=== PATIENT | female | born 1940 | race Caucasian/White ===

== ENCOUNTER 2018-05-17 12:44 | Inpatient (IN) | payer OTHER ==
[2018-05-17] MEDS ORDERED: ROPIVACAINE 0.2% 80 MG, EPINEPHrine 0.2 MG, morphINE 10 MG in SYRINGE 0 ML IU ONE (12:46)
[2018-05-17] MEDS ORDERED: ceFAZolin 2 GM/DEXTROSE 100 ML IV ONE (12:46)
[2018-05-17] MEDS ORDERED: TRANEXAMIC ACID 3,000 MG in NS (SYRINGE) 50 ML IRR ONE (12:46)
[2018-05-17] MEDS ORDERED: LR 1,000 ML IV ONE (12:47)
--- NOTE | 2018-05-17 13:04 | PDGENHP ---
History & Physical Chief Complaint: Left hip unstable bipolar hemiarthroplasty, acetabular fracture History of Present Illness: Payal is here for repeat evaluation of her left hip s /p left hip bipolar hemiarthroplasty with subsequent fall and dislocation in [place] 4 months ago. She also has nondisplaced acetabular fracture. Since her last visit she fell and dislocated her hip on 04/26/18. Hip was reduced at [facility] and CT scan was ordered which showed reduction of dislocation as well as minimally displaced acetabular fracture. She was put in [facility] facility where she dislocated again when turning over in bed on 05/13/18. She now has an unstable bipolar hemiarthroplasty with acetabular fracture. We discussed options including surgical intervention with revision to total hip arthroplasty. Pertinent Past, Social, Family History: PMH: Anxiety, arthritis, depression, HTN , osteoporosis. FH: non-contributory. SH: non smoker Relevant Physical Exam: Payal is unable to ambulate. She is currently in a wheelchair with a brace locked with hip at 90 degrees of flexion. Unable to test ROM due to brace and pain. She is NV intact LLE. Calf is soft to compression without pain. Cardiorespiratory Assessment: RRR, CTAB
[2018-05-17] MEDS ORDERED: POLYMYXIN B SULFATE 500,000 UNIT/10 ML SYR IRR ONE (13:08)
[2018-05-17] MEDS ORDERED: BACITRACIN 50,000 UNITS/10 ML SYR IRR ONE (13:08)
[2018-05-17] MEDS ORDERED: CALCIUM CHLORIDE 1 GM/10 ML INJ ONE (13:08)
[2018-05-17] MEDS ORDERED: THROMBIN (BOVINE) 5,000 UNIT VIAL TP ONE (13:08)
[2018-05-17] MEDS ORDERED: BUPIVACAINE/EPI 0.5% 30 ML SDV ONE (13:08)
--- NOTE | 2018-05-17 13:50 | PDANEPAE ---
ANE Past Medical History - Cardiovascular History Hx Hypertension: No Hx Arrhythmias: No Hx Chest Pain: No Hx Coronary Artery / Peripheral Vascular Disease: No Hx CHF / Valvular Disease: No Hx Palpitations: No - Pulmonary History Hx COPD: No Hx Asthma/Reactive Airway Disease: No Hx Recent Upper Respiratory Infection: No Hx Oxygen in Use at Home: No Hx Sleep Apnea: No Sleep Apnea Screening Result - Last Documented: Negative - Neurologic History Hx Cerebrovascular Accident: No Hx Seizures: No Hx Dementia: No Neurologic History Comment: parkinsons - Endocrine History Hx Diabetes: No - Renal History Hx Renal Disorders: Yes Renal History Comment: cystitis without hematuria - Liver History Hx Hepatic Disorders: No - Neurological & Psychiatric Hx Hx Neurological and Psychiatric Disorders: Yes Neurological / Psychiatric History Comment: depression. anxiety - Cancer History Hx Cancer: No - Congenital Disorder History Hx Congenital Disorders: No - GI History Hx Gastrointestinal Disorders: Yes Gastrointestinal History Comment: constipation - Other Health History Other Health History: hx of anemia. chronic pain. fibromyalgia - Surgical History Prior Surgeries: 03/02/11 left cataract surgery with Edgar. 02/02/11 right cataract surgery with Edgar. 08/19/09 L1 kyphoplasty with VVC. hysterectomy. tonsillectomy. r total knee ANE Review of Systems Review of Systems: - Exercise capacity METS (RN): 2 METS ANE Patient History - Allergies Allergies/Adverse Reactions: tramadol Allergy (Verified 05/17/18 13:00) - Home Medications Home Medications: ACETAMINOPHEN 05/16/18 [Last Taken 05/17/18 03:00] Amantadine 05/16/18 [Last Taken 3 Weeks Ago ~04/26/18] Carbidopa/Levodopa 05/16/18 [Last Taken 05/17/18] Flonase Nasal [place] BID 05/16/18 [Last Taken 05/17/18] Gabapentin 05/16/18 [Last Taken 05/17/18] Herbals/Supplements -Info Only 05/16/18 [Last Taken 05/17/18] Lovenox 05/16/18 [Last Taken 05/16/18] Mirabegron HS 05/16/18 [Last Taken 05/16/18] Requip 05/16/18 [Last Taken 05/17/18] Wellbutrin Xl 05/16/18 [Last Taken 05/17/18] oxyCODONE IR 05/16/18 [Last Taken 05/17/18 09:30] - NPO status NPO Since - Liquids (Date): 05/17/18 NPO Since - Liquids (Time): 09:45 NPO Since - Solids (Date): 05/16/18 NPO Since - Solids (Time): 20:00 - Smoking Hx Smoking Status: Never smoked - Family Anes Hx Family Hx Anesthesia Complications: no ANE Labs/Vital Signs - Vital Signs Blood Pressure: 162/77 Heart Rate: 69 Respiratory Rate: 14 O2 Sat (%): 92 Height: 165.1 cm Weight: 63.503 kg ANE Physical Exam - Airway Mallampati Score: Class 2 - ASA Status ASA Status: II ANE Anesthesia Plan Anesthesia Plan: general endotracheal anesthesia, GA w LMA, spinal
[2018-05-17] MEDS ORDERED: PROPOFOL 200 MG/20 ML VIAL ONE (13:57)
[2018-05-17] MEDS ORDERED: fentaNYL 100 MCG/2 ML INJ ONE ×3 (13:57→17:29)
[2018-05-17] MEDS ORDERED: MIDAZOLAM 2 MG/2 ML VIAL ONE (13:57)
[2018-05-17] MEDS ORDERED: ONDANSETRON 4 MG/2 ML VIAL ONE (13:58)
[2018-05-17] MEDS ORDERED: METOCLOPRAMIDE 10 MG/2 ML VIAL ONE (13:58)
--- NOTE | 2018-05-17 14:18 | PDHPUP ---
History & Physical Update H&P update statement: This history and physical update is based on an assessment of the patient which was completed after admission or registration (within 24 hours), but prior to the surgery/procedure. H&P update: H&P reviewed & patient examined, no change in patient's condition since H&P completed
[2018-05-17] MEDS ORDERED: TRANEXAMIC ACID 3,000 MG/50 ML BAG IRR ONE (14:25)
[2018-05-17] MEDS ORDERED: diphenhydrAMINE 25 MG CAP PO PRN (17:07)
[2018-05-17] MEDS ORDERED: ONDANSETRON 4 MG/2 ML VIAL IVP PRN ×2 (17:07→17:18)
[2018-05-17] MEDS ORDERED: MAGNESIUM HYDROXIDE 30 ML UDCUP PO PRN (17:07)
[2018-05-17] MEDS ORDERED: METOCLOPRAMIDE 10 MG/2 ML VIAL IVP PRN (17:07)
[2018-05-17] MEDS ORDERED: DIPHENOXYLATE/ATROPINE LOMOTIL 1 TAB PO PRN (17:07)
[2018-05-17] MEDS ORDERED: POLYETHYLENE GLYCOL 3350 17 GM PKT PO PRN (17:07)
[2018-05-17] MEDS ORDERED: TAPENTADOL HCL 50 MG TAB PO PRN (17:07)
[2018-05-17] MEDS ORDERED: LACTULOSE 20 GM/30 ML UDCUP PO PRN (17:07)
[2018-05-17] MEDS ORDERED: PROMETHAZINE HCL 25 MG/ML INJ IVP PRN (17:07)
[2018-05-17] MEDS ORDERED: BISACODYL 10 MG SUPP PR PRN (17:07)
[2018-05-17] MEDS ORDERED: ONDANSETRON DISINTEGRATING 4 MG TAB PO PRN (17:07)
[2018-05-17] MEDS ORDERED: TEMAZEPAM 15 MG CAP PO PRN (17:07)
[2018-05-17] MEDS ORDERED: PROMETHAZINE HCL 25 MG SUPPR PR PRN (17:07)
--- NOTE | 2018-05-17 17:07 | POSTOPPROG ---
Post Op Note Date of Operation: 05/17/18 Surgeon: Colleen Dumont Hydrometallurgical Engineer: coltrain Anesthesia: GET(General Endotracheal) Pre-op Diagnosis: l acetab fx with naren-arthroplasty instability Procedure: l naren-arthroplasty conversion to total with orif acetabulum w/ fluoro Inf/Abcess present in the surg proc area at time of surgery?: No Depth: Deep Incisional (Fascial) EBL: 500-1000
[2018-05-17] MEDS ORDERED: NALOXONE HCL 0.4 MG/ML INJ IVP PRN (17:18)
[2018-05-17] MEDS ORDERED: LR 500 ML IV PRN (17:18)
[2018-05-17] MEDS ORDERED: oxyCODONE IR 5 MG TAB PO PRN (17:18)
--- NOTE | 2018-05-17 17:19 | POSTANESTH ---
Post Anesthetic Evaluation Cardiovascular Status: Normal, Stable Respiratory Status: Normal, Stable Level of Consciousness/Mental Status: Can Participate in Eval Pain Control: Adequate, Prn Tx Ordered Nausea/Vomiting Control: Adequate, Prn Tx Ordered Complications Possibly Related to Anesthesia: None Noted
[2018-05-17] MEDS: fentaNYL 100 MCG/2 ML INJ IVP PRN ×3 (17:39→18:13)
[2018-05-17] MEDS ORDERED: KETOROLAC 15 MG/1 ML SDV ONE (17:43)
[2018-05-17] MEDS: KETOROLAC 15 MG/1 ML SDV IVP SCH (17:46)
[2018-05-17] MEDS ORDERED: HYDROmorphONE/DILAUDID 2 MG/ML INJ ONE (18:30)
[2018-05-17] MEDS: HYDROmorphONE/DILAUDID 2 MG/ML INJ IVP PRN ×2 (18:32→18:45)
[2018-05-17] MEDS ORDERED: HYDROmorphONE/DILAUDID 1 MG/ML INJ IVP PRN (18:42)
--- NOTE | 2018-05-17 19:24 | GOP ---
[f rep st] OPERATIVE REPORT DATE OF OPERATION: 05/17/2018 SURGEON: Colleen Dumont MD COMMERCIAL LINES MANAGER: Steve Miller, Certified SA, whose presence was medically necessary. ANESTHESIA: By endotracheal intubation. PREOPERATIVE DIAGNOSIS: Right hip hemiarthroplasty instability with acetabular fracture. POSTOPERATIVE DIAGNOSIS: Right hip hemiarthroplasty instability with acetabular fracture with left h ip dislocation. PROCEDURE PERFORMED: Left hip hemiarthroplasty conversion to a total hip arthroplasty with open redu ction internal fixation of the acetabulum and reduction of the dislocated left hemiarthroplasty with fluoroscopy. FINDINGS: INDICATIONS: This is a 77-year-old female who had previously undergone a left hip hemiarthroplasty. Had been doing well until she had a fall in [place], where she was then diagnosed with an acetab ular fracture. As time went on, she began to have episodes of instability associated with her hip. Has had 3 episodes of dislocation that have been able to be put back in. She had been placed in a hi p abduction brace, but would like definitive fixation in order to resolve her problem. DESCRIPTION OF PROCEDURE: Patient was brought to the operating room after the left side had been mitali ntified as the correct side by the patient, nurse, and physician. Once in the operating room, she wa s placed under general anesthesia using endotracheal intubation. Once asleep, she was placed on a tr action table with a well-padded perineal post. Fluoroscopy was used to ensure proper positioning of the pelvis and in so doing, found the hemiarthroplasty to be in a dislocated position. Am attempt at dislocation was attempted but unable to relocate the hip, suggesting it had been out for some time. She had both legs placed in appropriate leg holders. The left hip and flank were then sterilely pre pped and draped in the usual fashion using GSI solution. Once prepped and draped, incision was made starting 2 cm lateral and inferior to the ASIS and heading in a 15-degree posterior direction with sh desi dissection carried down through the skin and subcutaneous layers and bleeding controlled using el ectrocautery. Dissection was done down onto the fascia of the TFL with the fascia cut in line with i ts fibers. The muscle belly of the TFL retracted laterally. Blunt dissection was carried down to th e deep portion of the fascial sheath, where the circumflex vessels were found and were cauterized. D eeper dissection was carried down onto the hip. Very difficult to discern anatomy secondary to the a bundant amount of scar tissue in the area. Scar tissue was subsequently removed bit-by-bit until mitali ntifying the acetabulum, which was filled with pulvinar and scar tissue, suggesting that the hemiarth roplasty had not been in the hip for some time. Further dissection carried superiorly found abundant amount of scar tissue around the femoral component, suggesting it had been dislocated for some time. Once the scar tissue had been adequately removed, the hip was able to be brought out of dislocation . The head was then removed in order to gain better access into the acetabulum. An abundant amount of scar tissue within the acetabulum as well as pulvinar had to be removed in order to define the dewayne tabulum. There was abundant amount of wear of the bone associated with fractures on the posterior wa ll of the acetabulum. She was noted to have good stability through the acetabulum due to secondary i nterval healing of the acetabulum since original fall. Sequential reamers were used up to a size 54, which was noted to get good peripheral fit and good bleeding bone. A 54 trial was noted to fit secu rely and was checked under fluoroscopy to note proper position. Once in proper position, a 54 mm Tri dent Tritanium shell from [place] was put into place. There were a total of 5 screws placed within t he cup, 2 superiorly, 1 posteriorly, 1 anteroinferior, and 1 posteroinferior into the cup in order to gain good fixation. All screws had excellent fixation. Trial reduction was performed. Secondary t o the dislocation, it was very difficult to tell what tissue tension was in the area secondary to the chronicity of her dislocation. Trials were performed, noted to have adequate length returned to the pelvis. Therefore, an MDM cementless 42 mm liner was placed into the acetabular shell from [place], at which point the original 28 mm head was placed back onto the trunnion as well as a Jewish MD M polyethylene insert that was a 28 x 48 mm polyethylene liner was then put into place. The hip was then reduced. The length was checked and noted to be within 1 cm of the opposite side. The wound wa s thoroughly irrigated with an antibiotic solution. Joint cocktail was injected in the posterior cap pool as well as the musculature around the hip. Tranexamic acid was irrigated through the wound. Th e wound was then closed in layers to include a barbed 0 Prolene suture in a running whipstitch for th e fascial layer overlying the TFL. Plasma gel was injected into the sheath. 0 Vicryl and 2-0 Vicryl suture used for the subcutaneous layers and a 3-0 V-Loc suture in running subcuticular stitch was us ed for the skin. 30 cc of Marcaine was infused around the actual incision site itself. The wound wa s then dressed with Steri-Strips, Xeroform, 4 x 4, and Tegaderm. The patient was completely undraped in the operating room, had both legs taken out of their leg mo, perineal post was removed, leg l engths were noted to be nearly equal. She was then woken up, extubated, transferred onto a bed, and sent to recovery room in good condition. /[id number]/MODL
[2018-05-17] MEDS: ACETAMINOPHEN 325 MG TAB PO SCH (20:03)
[2018-05-17] MEDS: LR 1,000 ML IV SCH (20:13)
[2018-05-17] MEDS: FAMOTIDINE 20 MG TAB PO SCH (20:13)
[2018-05-17] MEDS: SENNOSIDES/DOCUSATE SODIUM TAB PO SCH (20:13)
[2018-05-17] MEDS: oxyCODONE IR 5 MG TAB PO PRN (20:14)
[2018-05-17] MEDS: ceFAZolin 2 GM/DEXTROSE 100 ML IV SCH (22:33)
[2018-05-18] MEDS: KETOROLAC 15 MG/1 ML SDV IVP SCH ×3 (00:11→11:53)
[2018-05-18] MEDS: ACETAMINOPHEN 325 MG TAB PO SCH ×4 (00:11→18:31)
[2018-05-18] MEDS: oxyCODONE IR 5 MG TAB PO PRN ×4 (00:11→21:17)
[2018-05-18] MEDS: LR 1,000 ML IV SCH ×2 (05:06→10:34)
[2018-05-18] MEDS: ceFAZolin 2 GM/DEXTROSE 100 ML IV SCH (06:28)
--- NOTE | 2018-05-18 07:22 | PDMN ---
Medical Necessity Medical necessity: [facility] S560 hip arthroplasty INPT only : OP: L hip hemiarthroplasty conversion to MARITZA with ORIF of acetabulum and reduction of dislocated L hemiarthroplasty with fluoroscopy-- AUTH# [id number] APPROVED FOR CPT CODES 01101, 13195, AND 67149 TO BE DONE INPATIENT. 1 DAY LOS.
[2018-05-18 08:48] LABS: PLATELET COUNT 264 10^3/uL (150-400)
[2018-05-18] MEDS: RIVAROXABAN 10 MG TAB PO SCH (08:50)
[2018-05-18] MEDS: FAMOTIDINE 20 MG TAB PO SCH ×2 (08:50→20:04)
[2018-05-18] MEDS: SENNOSIDES/DOCUSATE SODIUM TAB PO SCH ×2 (08:51→19:35)
--- NOTE | 2018-05-18 09:23 | PDHOSCONS ---
History and Physical - Chief Complaint decreased uop - History of Present Illness 77 yo female with h/o prior MARITZA presented for revision of MARITZA after repeated dislocation. She is s/p revision and ORIF, pod #1. RN reported decreased uop overnight. A gates is in place. She notes a h/o UTI in 12/2017 as well as urinary incontinence. She reports 3 UTI's in the past year. She started Myrbetriq for urinary incontinence, which she thinks was helpful. No fevers/ chills. No N/V. No abdominal pain or flank pain. She is eating and drinking. Pain is controlled. History Information - Allergies/Home Medication List Allergies/Adverse Reactions: tramadol Allergy (Verified 05/17/18 13:00) Home Medications: Acetaminophen [Tylenol ES 500 mg (*)] 500 mg PO Q6 PRN 05/16/18 [Last Taken 03:00] Amantadine HCl [Amantadine] 100 mg PO DAILY PRN 05/16/18 [Last Taken 3 Weeks Ago ~04/26/18] Carbidopa/Levodopa [Carbidopa-Levodopa 25-100 Tab] 1.5 each PO TID 05/16/18 [ Last Taken 05/17/18] Enoxaparin [Lovenox 40 MG (*)] 40 mg SQ DAILY 05/16/18 [Last Taken 05/16/18] Fluticasone Nasal [Flonase Nasal [place] (RX)] 1 sprays NASAL BID 05/16/18 [Last Taken 05/17/18] Gabapentin [Neurontin 300 MG (*)] 300 mg PO DAILY@08 05/16/18 [Last Taken ] Herbals/Supplements -Info Only 1 ea PO DAILY 05/16/18 [Last Taken 05/17/18] Mirabegron [Myrbetriq] 25 mg PO HS 05/16/18 [Last Taken 05/16/18] buPROPion XL [Wellbutrin Xl] 300 mg PO DAILY 05/16/18 [Last Taken 05/17/18] oxyCODONE IR [Oxycodone Ir (*)] 5 - 10 mg PO Q6H PRN 05/16/18 [Last Taken 12:30 10mg] rOPINIRole HCL [Ropinirole HCl] 0.5 mg PO TID 05/16/18 [Last Taken 05/17/18] Cholecalciferol Vit D3 [Vitamin D3 (*)] 5,000 units PO DAILY 05/17/18 [Last Taken 05/17/18] Gabapentin [Neurontin 300 MG (*)] 600 mg PO HS 05/17/18 [Last Taken 05/16/18] Sennosides/Docusate Sodium [Senokot-S (OTC)] 1 each PO DAILY PRN 05/17/18 [Last Taken Unknown] Vitamin B Complex [Vitamin B Complex (OTC)] 1 each PO DAILY 05/17/18 [Last Taken 05/17/18] I have personally reviewed and updated: family history, medical history, social history, surgical history - Past Medical History Additional medical history: Parkinsons. Recurrent UTI. Neuropathy - Surgical History Additional surgical history: MARITZA, with revision and ORIF of acetabular fracture 04/2018 - Family History Positive for: non-pertinent - Social History Smoking Status: Never smoked Alcohol Use: None Drug Use: None Review of Systems Review of Systems: ROS: 10pt was reviewed & negative except for what was stated in HPI & below Physical Exam Physical Exam: Temp Pulse Resp BP Pulse Ox 36.7 C 72 16 109/51 L 97 05/18/18 07:51 05/18/18 08:09 05/18/18 08:09 05/18/18 08:09 05/18/18 08:09 O2 (L/minute) 2 Constitutional: no apparent distress Eyes: PERRL Ears, Nose, Mouth, Throat: moist mucous membranes Cardiovascular: regular rate and rhythym Respiratory: no respiratory distress, clear to auscultation Gastrointestinal: normoactive bowel sounds, soft, non-tender abdomen Skin: warm Musculoskeletal: full muscle strength Neurologic: AAOx3 Psychiatric: interacting appropriately, poor memory Lab Data & Imaging Review 05/18/18 08:40 05/18/18 08:40 WBC 10.05 10^3/uL (3.80-9.50) H 05/18/18 08:40 RBC 3.06 10^6/uL (4.18-5.33) L 05/18/18 08:40 Hgb 8.5 g/dL (12.6-16.3) L 05/18/18 08:40 Hct 26.7 % (38.0-47.0) L 05/18/18 08:40 MCV 87.3 fL (81.5-99.8) 05/18/18 08:40 MCH 27.8 pg (27.9-34.1) L 05/18/18 08:40 MCHC 31.8 g/dL (32.4-36.7) L 05/18/18 08:40 RDW 14.6 % (11.5-15.2) 05/18/18 08:40 Plt Count 264 10^3/uL (150-400) 05/18/18 08:40 MPV 7.8 fL (8.7-11.7) L 05/18/18 08:40 Neut % (Auto) 77.9 % (39.3-74.2) H 05/18/18 08:40 Lymph % (Auto) 14.8 % (15.0-45.0) L 05/18/18 08:40 [place] % (Auto) 4.5 % (4.5-13.0) 05/18/18 08:40 Eos % (Auto) 1.9 % (0.6-7.6) 05/18/18 08:40 Baso % (Auto) 0.5 % (0.3-1.7) 05/18/18 08:40 Nucleat RBC Rel Count 0.0 % (0.0-0.2) 05/18/18 08:40 Absolute Neuts (auto) 7.83 10^3/uL (1.70-6.50) H 05/18/18 08:40 Absolute Lymphs (auto) 1.49 10^3/uL (1.00-3.00) 05/18/18 08:40 Absolute Monos (auto) 0.45 10^3/uL (0.30-0.80) 05/18/18 08:40 Absolute Eos (auto) 0.19 10^3/uL (0.03-0.40) 05/18/18 08:40 Absolute Basos (auto) 0.05 10^3/uL (0.02-0.10) 05/18/18 08:40 Absolute Nucleated RBC 0.00 10^3/uL (0-0.01) 05/18/18 08:40 Immature Gran % 0.4 % (0.0-1.1) 05/18/18 08:40 Immature Gran # 0.04 10^3/uL (0.00-0.10) 05/18/18 08:40 Urine Color YELLOW 05/17/18 23:05 Urine Appearance TURBID 05/17/18 23:05 Urine pH 5.0 (5.0-7.5) 05/17/18 23:05 Ur Specific [place] 1.027 (1.002-1.030) 05/17/18 23:05 Urine Protein 2+ (NEGATIVE) H 05/17/18 23:05 Urine Ketones TRACE (NEGATIVE) H 05/17/18 23:05 Urine Blood 1+ (NEGATIVE) H 05/17/18 23: Urine Nitrate NEGATIVE (NEGATIVE) 05/17/18 23: Urine Bilirubin NEGATIVE (NEGATIVE) 05/17/18 23: Urine Urobilinogen NEGATIVE EU (0.2-1.0) 05/17/18 23:05 Ur Leukocyte Esterase 2+ (NEGATIVE) H 05/17/18 23:05 Urine RBC 50-182 /hpf (0-3) H 05/17/18 23:05 Urine WBC 50-182 /hpf (0-3) H 05/17/18 23:05 Ur Epithelial Cells NONE SEEN /lpf (NONE-1+) 05/17/18 23: Urine Bacteria 4+ /hpf (NONE SEEN) H 05/17/18 23:05 Urine Yeast PRESENT /hpf (NONE SEEN) 05/17/18 23:05 Urine Glucose NEGATIVE (NEGATIVE) 05/17/18 23:05 Assessment & Plan Assessment: CAUTI - pt has complained of frequency, urgency prior to admission with recent UTI in 12/2017. No fevers or signs of sepsis. Start Ceftriaxone, requested UCx on prior ua specimen. Given recurrent UTI, will recommend suppressive therapy with Keflex once this tx course complete. Low uop - Gates currently in place. Will cont gates for now given low uop for accurate I&O. Suspect she needs more volume, noting low BP this am, which is improved. NS bolus now, cont IVF's. Discussed with RN, try to dc gates this afternoon if uop improved. Recommend outpt urology f/u given ongoing incontinence issues, ?may be symptom of UTI. S/P MARITZA revision with ORIF after suffering acetabular fracture with unstable prior MARITZA - POD #1. Post op care per ortho team. Parkinson - cont home meds Neuropathy - cont gabapentin Full code Dispo - cont inpt. Ortho is primary. Medicine will continue to follow daily while inpt. Thank you for this consult.
[2018-05-18] MEDS ORDERED: NS 500 ML IV ONE (09:27)
[2018-05-18] MEDS ORDERED: AMANTADINE HCL 100 MG CAP PO PRN (09:28)
[2018-05-18] MEDS ORDERED: SENNOSIDES/DOCUSATE SODIUM TAB PO PRN (09:28)
[2018-05-18] MEDS: buPROPion XL 150 MG TAB PO SCH (10:36)
[2018-05-18] MEDS: FLUTICASONE NASAL 120 SPRAYS/16 GM MDI EACHNARE SCH ×2 (11:14→20:05)
--- NOTE | 2018-05-18 13:48 | ASMTCMCOM ---
CM Note CM Note Notes: Pt had hip revision surgery, has been at [facility] since 04/29/18. OT/PT rec SNF today. Pt reports she is disappointed she likely has to go back to [facility], was hoping she could go home. Pt resides with [facility] when she is at home. Referral sent to in [employer]. D/c plan of care: [facility] Date Signed: 05/18/2018 01:48 PM Electronically Signed By:STONEY Crowley
--- NOTE | 2018-05-18 14:46 | SOAPPROG ---
SOAP Progress Note Assessment/Plan: Assessment: Plan: Subjective: states her hip is starting to hurt and feels tired dressing C&D with bruising noted at inf wound foot NVI cont pain meds and pt Objective: Vital Signs Temp Pulse Resp BP Pulse Ox 36.6 C 78 16 124/52 H 98 05/18/18 11:28 05/18/18 13:15 05/18/18 11:28 05/18/18 13:15 05/18/18 13:15 Laboratory Results 05/18/18 08:40 05/18/18 08:40 05/17/18 05/18/18 05/19/18 05:59 05:59 05:59 Intake Total 3725 850 Output Total 1200 310 Balance 2525 540 ICD10 Worksheet Patient Problems: Problems Problem Status Onset Hip dislocation, left Acute UTI (urinary tract infection) Acute - ICD10 Problem Qualifiers (1) Hip dislocation, left
[2018-05-18] MEDS: CARBIDOPA/LEVODOPA 25 MG/100 MG TAB PO SCH ×2 (16:08→21:22)
[2018-05-18] MEDS: Mirabegron [Myrbetriq] 25 MG PO SCH (19:34)
[2018-05-18] MEDS: GABAPENTIN 300 MG CAP PO SCH (20:04)
[2018-05-19] MEDS: ACETAMINOPHEN 325 MG TAB PO SCH ×4 (00:32→18:03)
[2018-05-19 04:51] LABS: PLATELET COUNT 258 10^3/uL (150-400)
[2018-05-19] MEDS: RIVAROXABAN 10 MG TAB PO SCH (09:08)
[2018-05-19] MEDS: CHOLECALCIFEROL VIT D3 1,000 UNITS TAB PO SCH (09:08)
[2018-05-19] MEDS: SENNOSIDES/DOCUSATE SODIUM TAB PO SCH ×2 (09:08→21:57)
[2018-05-19] MEDS: FAMOTIDINE 20 MG TAB PO SCH ×2 (09:10→20:07)
[2018-05-19] MEDS: CARBIDOPA/LEVODOPA 25 MG/100 MG TAB PO SCH ×3 (09:10→21:56)
[2018-05-19] MEDS: buPROPion XL 150 MG TAB PO SCH (09:10)
[2018-05-19] MEDS: GABAPENTIN 300 MG CAP PO SCH ×2 (09:12→20:07)
[2018-05-19] MEDS: FLUTICASONE NASAL 120 SPRAYS/16 GM MDI EACHNARE SCH ×2 (11:17→20:08)
--- NOTE | 2018-05-19 15:05 | SOAPPROG ---
SOAP Progress Note Assessment/Plan: Assessment: Plan: Subjective: states she has less pain but is still tired no change in dressing foot NVI cont pt and pain meds Objective: Vital Signs Temp Pulse Resp BP Pulse Ox 36.4 C 75 16 113/60 96 05/19/18 14:55 05/19/18 14:55 05/19/18 14:55 05/19/18 14:55 05/19/18 14:55 Laboratory Results 05/19/18 04:21 05/19/18 04:21 05/18/18 05/19/18 05/20/18 05:59 05:59 05:59 Intake Total 3725 1090 600 Output Total 1200 1610 800 Balance 2525 -520 -200 ICD10 Worksheet Patient Problems: Problems Problem Status Onset Hip dislocation, left Acute UTI (urinary tract infection) Acute
--- NOTE | 2018-05-19 15:12 | HOSPPROG ---
Hospitalist Progress Note Assessment/Plan: UTI - UCx growing pseudomonas. Unclear if her prior treatment covered for this. I suspect this was present prior to admission and not catheter associated. -change atbx to cipro, await sensitivities S/P MARITZA revision with ORIF of acetabular fracture - POD #2 - post-op care per surgical team Parkinson's - cont home meds Neuropathy - cont gabapentin Full code Dispo - cont inpt, will likely dc to SNF Subjective: Pt feels ok. No pain. Notes recent urgency and previously treated UTI, but symptoms did not get better and urine looks worse. No fevers/chills. No N/V. Taking po well. Moving with therapy. She says she does not want to go back to SNF and wants to go home. Objective: Vital Signs Temp Pulse Resp BP Pulse Ox 36.4 C 75 16 113/60 96 05/19/18 14:55 05/19/18 14:55 05/19/18 14:55 05/19/18 14:55 05/19/18 14:55 Laboratory Results 05/19/18 04:21 05/19/18 04:21 05/18/18 05/19/18 05/20/18 05:59 05:59 05:59 Intake Total 3725 1090 600 Output Total 1200 1610 800 Balance 2525 -520 -200 - Physical Exam Constitutional: no apparent distress Eyes: PERRL Ears, Nose, Mouth, Throat: moist mucous membranes Cardiovascular: regular rate and rhythym Respiratory: no respiratory distress Gastrointestinal: normoactive bowel sounds, soft, non-tender abdomen Skin: warm Musculoskeletal: other (left hip incision c/d/i) Neurologic: AAOx3 Psychiatric: interacting appropriately ICD10 Worksheet Patient Problems: Problems Problem Status Onset UTI (urinary tract infection) Acute - ICD10 Problem Qualifiers (1) UTI (urinary tract infection) Qualifiers: Urinary tract infection type: acute cystitis Hematuria presence: without hematuria Qualified Code(s): N30.00 - Acute cystitis without hematuria
[2018-05-19] MEDS: CIPROFLOXACIN 500 MG TAB PO SCH ×2 (16:14→20:06)
[2018-05-19] MEDS: Mirabegron [Myrbetriq] 25 MG PO SCH (20:28)
[2018-05-20] MEDS: ACETAMINOPHEN 325 MG TAB PO SCH ×4 (00:34→18:25)
[2018-05-20] MEDS: GABAPENTIN 300 MG CAP PO SCH ×2 (07:53→19:58)
[2018-05-20] MEDS: oxyCODONE IR 5 MG TAB PO PRN (07:53)
[2018-05-20] MEDS: CARBIDOPA/LEVODOPA 25 MG/100 MG TAB PO SCH ×3 (07:54→21:28)
[2018-05-20] MEDS: buPROPion XL 150 MG TAB PO SCH (07:55)
[2018-05-20] MEDS: SENNOSIDES/DOCUSATE SODIUM TAB PO SCH ×2 (09:14→19:57)
[2018-05-20] MEDS: FAMOTIDINE 20 MG TAB PO SCH ×2 (09:15→19:59)
[2018-05-20] MEDS: CHOLECALCIFEROL VIT D3 1,000 UNITS TAB PO SCH (09:15)
[2018-05-20] MEDS: FLUTICASONE NASAL 120 SPRAYS/16 GM MDI EACHNARE SCH ×2 (09:17→20:01)
[2018-05-20] MEDS: CIPROFLOXACIN 500 MG TAB PO SCH ×2 (09:51→19:59)
[2018-05-20] MEDS: RIVAROXABAN 10 MG TAB PO SCH (09:51)
--- NOTE | 2018-05-20 12:16 | SOAPPROG ---
SOAP Progress Note Assessment/Plan: Assessment: Payal is POD#3 s/p revision left hip replacement. She is doing well and reports pain is controlled PE: Dressing is clean and dry. Calf is soft to compression without pain. NV intact LLE Plan: We discussed discharge options including SNF and home with home health. Payal does not want to go back to a SNF. If she is cleared from PT/OT we can send her home with home health. She will continue toe touch weight bearing. 05/20/18 12:14 Objective: Vital Signs Temp Pulse Resp BP Pulse Ox 36.7 C 73 16 126/50 H 96 05/20/18 08:00 05/20/18 08:00 05/20/18 08:00 05/20/18 08:00 05/20/18 08:00 Laboratory Results 05/20/18 07:55 05/19/18 04:21 05/19/18 05/20/18 05/21/18 05:59 05:59 05:59 Intake Total 1090 1200 350 Output Total 1610 2100 Balance -520 -900 350 ICD10 Worksheet Patient Problems: Problems Problem Status Onset UTI (urinary tract infection) Acute
--- NOTE | 2018-05-20 16:37 | HOSPPROG ---
Hospitalist Progress Note Assessment/Plan: UTI - UCx growing pseudomonas. Unclear if her prior treatment covered for this. Pt gives h/o UTI prior to admission, s/p atbx course, but she is unsure which atbx. I suspect this UTI was present prior to admission and not catheter associated. -change atbx to cipro, await sensitivities S/P MARITZA revision with ORIF of acetabular fracture - POD #3 - post-op care per surgical team Parkinson's - query some degree of cognitive impairment -cont home meds -will request cog eval Hyponatremia - Na up to 133 with fluid restriction, will loosen this a bit at pt 's request -recheck in am Neuropathy - cont gabapentin Full code Dispo - cont inpt, needs SNF, but pt refusing. Wants to go home with [facility]. PT/ OT continues to assess safety for home d/c but currently this is not felt to be a safe plan. Cog eval as above to determine her baseline / decision making capacity. Subjective: PT feels ok today. Pain is controlled. No fevers/chills. No N/V. No abdominal pain. Urinary symptoms are improved. Objective: Vital Signs Temp Pulse Resp BP Pulse Ox 36.4 C 69 16 113/62 95 05/20/18 15:20 05/20/18 15:20 05/20/18 15:20 05/20/18 15:20 05/20/18 15:20 Laboratory Results 05/20/18 07:55 05/19/18 04:21 05/19/18 05/20/18 05/21/18 05:59 05:59 05:59 Intake Total 1090 1200 1050 Output Total 1610 2100 300 Balance -520 -900 750 - Physical Exam Constitutional: no apparent distress Eyes: PERRL Ears, Nose, Mouth, Throat: moist mucous membranes Cardiovascular: regular rate and rhythym Respiratory: no respiratory distress Gastrointestinal: normoactive bowel sounds, soft, non-tender abdomen Skin: warm Musculoskeletal: full muscle strength Neurologic: AAOx3 Psychiatric: interacting appropriately ICD10 Worksheet Patient Problems: Problems Problem Status Onset Hip dislocation, left Acute UTI (urinary tract infection) Acute - ICD10 Problem Qualifiers (1) UTI (urinary tract infection) Qualifiers: Urinary tract infection type: acute cystitis Hematuria presence: without hematuria Qualified Code(s): N30.00 - Acute cystitis without hematuria
--- NOTE | 2018-05-20 16:48 | ASMTCMCOM ---
CM Note CM Note Notes: Met with patient to discuss discharge planning. Patient has been at [facility] and today refuses to return. She states there are numerous issues and she doesn't wish to get into the issues. When asked if she would consider another SNF, patient still refused. Patient was adamant today that she wants to discharge home. She does live with her , it is unclear how much assistance he is able to provide as he suffers from his own medical issues. Patient states she would be open to hiring private caregivers, resources provided today and CM encouraged her to call. She has also had [facility] in the past and at the very least, we could set-up services with them as well. Discussed case with Dr. May today. She is concerned about patient's cognitive ability to make this decision. She has ordered a cog eval to hopefully provide further direction. Joann from [facility] plans on visiting patient on Sunday to see if any of the 'issues' can be resolved. Will hold off on referral to [facility] for the time being and re-evaluate again post cog eval. CM will follow. Plan: TBD SNF ([facility]) vs C ([facility] ) Date Signed: 05/20/2018 04:48 PM Electronically Signed By:Chaya Garza RN
[2018-05-20] MEDS: Mirabegron [Myrbetriq] 25 MG PO SCH (21:30)
[2018-05-21] MEDS: ACETAMINOPHEN 325 MG TAB PO SCH ×5 (00:02→23:43)
[2018-05-21] MEDS: buPROPion XL 150 MG TAB PO SCH (09:20)
[2018-05-21] MEDS: GABAPENTIN 300 MG CAP PO SCH ×2 (09:20→21:06)
[2018-05-21] MEDS: CHOLECALCIFEROL VIT D3 1,000 UNITS TAB PO SCH (09:21)
[2018-05-21] MEDS: FAMOTIDINE 20 MG TAB PO SCH ×2 (09:21→21:06)
[2018-05-21] MEDS: RIVAROXABAN 10 MG TAB PO SCH (09:21)
[2018-05-21] MEDS: CIPROFLOXACIN 500 MG TAB PO SCH ×2 (09:22→21:06)
[2018-05-21] MEDS: FLUTICASONE NASAL 120 SPRAYS/16 GM MDI EACHNARE SCH ×2 (09:22→21:07)
[2018-05-21] MEDS: SENNOSIDES/DOCUSATE SODIUM TAB PO SCH ×2 (09:23→21:58)
[2018-05-21] MEDS: CARBIDOPA/LEVODOPA 25 MG/100 MG TAB PO SCH ×3 (09:33→21:56)
--- NOTE | 2018-05-21 14:13 | HOSPPROG ---
Hospitalist Progress Note Assessment/Plan: Payal is a 77 yo female with h/o prior MARITZA presented for revision of MARITZA after repeated dislocation. today is my first encounter w the patient, chart reviewed. *UTI - UCx growing pseudomonas. -spoke w Lab and she is sensitive to Cipro *S/P MARITZA revision with ORIF of acetabular fracture - POD #4 - post-op care per surgical team *anemia -hgb and hct have trended down but she has a good bp -overall feeling very tired -will check iron studies, may benefit from IV iron *Parkinson's - query some degree of cognitive impairment -cont home meds *Hyponatremia - Na up to 134 with fluid restriction, will loosen this a bit at pt's request *Neuropathy - cont gabapentin *DVT prophylaxis: Xarelto *plan: she only wants to go home, will see how she does with PT and OT Subjective: Payal is tired and wants to go home Objective: Vital Signs Temp Pulse Resp BP Pulse Ox 36.7 C 71 16 121/53 H 95 05/21/18 07:46 05/21/18 07:46 05/21/18 07:46 05/21/18 07:46 05/21/18 07:46 Laboratory Results 05/21/18 10:18 05/21/18 04:32 05/20/18 05/21/18 05/22/18 05:59 05:59 05:59 Intake Total 1200 1250 Output Total 2100 1700 Balance -900 -450 - Physical Exam Constitutional: uncomfortable Eyes: PERRL Ears, Nose, Mouth, Throat: hearing normal Cardiovascular: regular rate and rhythym Respiratory: no respiratory distress Skin: warm, No normal color (pale) Musculoskeletal: generalized weakness Neurologic: AAOx3 Psychiatric: interacting appropriately ICD10 Worksheet Patient Problems: Problems Problem Status Onset Hip dislocation, left Acute UTI (urinary tract infection) Acute
--- NOTE | 2018-05-21 16:03 | ASMTCMCOM ---
CM Note CM Note Notes: Pt still declines SNF d/c today. Juve with [facility] met w pt today, pt reports no concern with [facility] she just wants to go home and does not want to consider any SNF. Juve informed pt if she gets home and wants to go back to [facility] pt can direct admit to [facility] from home withing 30 days. Pt reports she has called [facility] for unskilled care, is considering approx 4 hours/day. Pt provided list of DME places to rent hospital bed per her request. Pt provided loan closet list to find a wc. Pt would like [facility] at d/c, address/phone verified and Kesty notified. Pt had [facility] prior to admission to [facility] but does not want [facility] any more. PT/OT continue to rec SNF. Pt had [facility] today, rec inpatient acute rehab/SNF/24/hr supervision. D/c plan of care: [facility] PT/OT Date Signed: 05/21/2018 04:03 PM Electronically Signed By:STONEY Crowley
--- NOTE | 2018-05-21 16:43 | SOAPPROG ---
SOAP Progress Note Assessment/Plan: Assessment: Payal is POD#4 s/p revision left hip replacement. She is doing well and reports pain is controlled PE: Dressing is clean and dry. Calf is soft to compression without pain. NV intact LLE Plan: We discussed discharge options including SNF and home with home health. Payal does not want to go back to a SNF and wants to go home with home PT/OT. She is also considering getting [facility] to provide extra care at home. If she is cleared from PT/OT we can send her home with home health. She will continue toe touch weight bearing. She will keep this dressing clean and dry. 05/21/18 16:43 05/21/18 16:45 Objective: Vital Signs Temp Pulse Resp BP Pulse Ox 36.7 C 72 16 100/65 94 05/21/18 16:00 05/21/18 16:00 05/21/18 16:00 05/21/18 16:00 05/21/18 16:00 Laboratory Results 05/21/18 10:18 05/21/18 04:32 05/20/18 05/21/18 05/22/18 05:59 05:59 05:59 Intake Total 1200 1250 Output Total 2100 1700 Balance -900 -450 ICD10 Worksheet Patient Problems: Problems Problem Status Onset Hip dislocation, left Acute UTI (urinary tract infection) Acute
[2018-05-21] MEDS: Mirabegron [Myrbetriq] 25 MG PO SCH (21:09)
[2018-05-22] MEDS: ACETAMINOPHEN 325 MG TAB PO SCH ×3 (06:18→18:22)
[2018-05-22] MEDS: GABAPENTIN 300 MG CAP PO SCH ×2 (07:43→20:22)
[2018-05-22] MEDS: oxyCODONE IR 5 MG TAB PO PRN (07:43)
[2018-05-22] MEDS: FLUTICASONE NASAL 120 SPRAYS/16 GM MDI EACHNARE SCH ×2 (09:11→21:39)
[2018-05-22] MEDS: buPROPion XL 150 MG TAB PO SCH (09:11)
[2018-05-22] MEDS: CHOLECALCIFEROL VIT D3 1,000 UNITS TAB PO SCH (09:13)
[2018-05-22] MEDS: RIVAROXABAN 10 MG TAB PO SCH (09:14)
[2018-05-22] MEDS: CARBIDOPA/LEVODOPA 25 MG/100 MG TAB PO SCH ×3 (09:15→21:40)
[2018-05-22] MEDS: FAMOTIDINE 20 MG TAB PO SCH ×2 (09:18→20:22)
[2018-05-22] MEDS: SENNOSIDES/DOCUSATE SODIUM TAB PO SCH ×2 (09:18→20:22)
[2018-05-22] MEDS: CIPROFLOXACIN 500 MG TAB PO SCH ×2 (09:51→20:22)
--- NOTE | 2018-05-22 11:01 | HOSPPROG ---
Hospitalist Progress Note Assessment/Plan: Payal is a 77 yo female with h/o prior MARITZA presented for revision of MARITZA after repeated dislocation. today is my first encounter w the patient, chart reviewed. *UTI - UCx growing pseudomonas. -spoke w Lab and she is sensitive to Cipro (will give 5 days of treatment *S/P MARITZA revision with ORIF of acetabular fracture - POD #4 - post-op care per surgical team *anemia, iron def -hgb and hct have trended down but she has a good bp -overall feeling very tired -will add IV iron *Parkinson's - query some degree of cognitive impairment -cont home meds *Hyponatremia - Na up to 134 with fluid restriction, will loosen this a bit at pt's request *Neuropathy - cont gabapentin *DVT prophylaxis: Xarelto *plan: she only wants to go home, has a hospital bed being arranged for home care Subjective: Payal is hopeful about going home. Her is helping arrange for walker, wheelchair, hospital bed. Her pain is well managed Objective: Vital Signs Temp Pulse Resp BP Pulse Ox 36.6 C 64 18 113/68 99 05/22/18 07:32 05/22/18 07:32 05/22/18 07:32 05/22/18 07:32 05/22/18 07:32 Laboratory Results 05/21/18 10:18 05/21/18 04:32 05/21/18 05/22/18 05/23/18 05:59 05:59 05:59 Intake Total 1250 575 Output Total 1700 1 300 Balance -450 574 -300 - Physical Exam Constitutional: no apparent distress, appears nourished, not in pain Eyes: PERRL Ears, Nose, Mouth, Throat: hearing normal Cardiovascular: regular rate and rhythym Respiratory: no respiratory distress Skin: warm, No normal color (pale) Musculoskeletal: generalized weakness Neurologic: AAOx3 Psychiatric: interacting appropriately ICD10 Worksheet Patient Problems: Problems Problem Status Onset Hip dislocation, left Acute UTI (urinary tract infection) Acute
[2018-05-22] MEDS: SODIUM FERRIC GLUCONAT/SUCROSE 125 MG in NS 100 ML IV SCH (11:52)
[2018-05-22] MEDS: CYCLOBENZAPRINE 10 MG TAB PO PRN (14:40)
--- NOTE | 2018-05-22 15:46 | ASMTCMCOM ---
CM Note CM Note Notes: This CM spoke with pt ria Misbah, he is supporting pt decision to go home and not return to [facility]. Misbah reports they are in the process of getting a hospital bed, in the meantime she has a recliner to use, they are hiring [facility] unskilled home care. Misbah states he is retired and is home to provide / supervision. CM following. D/c plan of care: home with [facility] OT/PT Date Signed: 05/22/2018 03:45 PM Electronically Signed By:STONEY Crowley
--- NOTE | 2018-05-22 19:01 | SOAPPROG ---
SOAP Progress Note Assessment/Plan: Assessment: Payal is POD#5 s/p revision left hip replacement. She is doing well and reports pain is controlled PE: Dressing is clean and dry. Calf is soft to compression without pain. NV intact LLE Plan: We discussed discharge options including SNF and home with home health. Payal does not want to go back to a SNF and wants to go home with home PT/OT. She is also considering getting [facility] to provide extra care at home. If she is cleared from PT/OT we can send her home with home health. She will continue toe touch weight bearing. She will keep this dressing clean and dry. 05/21/18 16:43 05/21/18 16:45 05/22/18 19:01 Objective: Vital Signs Temp Pulse Resp BP Pulse Ox 36.7 C 74 16 120/74 98 05/22/18 15:43 05/22/18 15:43 05/22/18 15:43 05/22/18 15:43 05/22/18 15:43 Microbiology 05/17/18 23:05 Urine Culture - Final Urine,Clean Catch Ps. Aeruginosa Carbapenem "R" Laboratory Results 05/21/18 10:18 05/21/18 04:32 05/21/18 05/22/18 05/23/18 05:59 05:59 05:59 Intake Total 0022 499 3668 Output Total 1700 1 900 Balance -450 574 950 ICD10 Worksheet Patient Problems: Problems Problem Status Onset Hip dislocation, left Acute UTI (urinary tract infection) Acute
[2018-05-22] MEDS: Mirabegron [Myrbetriq] 25 MG PO SCH (21:45)
[2018-05-23] MEDS: ACETAMINOPHEN 325 MG TAB PO SCH ×3 (00:12→12:27)
[2018-05-23 07:43] VITALS: BP 138/76
[2018-05-23] MEDS: CARBIDOPA/LEVODOPA 25 MG/100 MG TAB PO SCH (08:57)
[2018-05-23] MEDS: oxyCODONE IR 5 MG TAB PO PRN (08:57)
[2018-05-23] MEDS: CHOLECALCIFEROL VIT D3 1,000 UNITS TAB PO SCH (08:57)
[2018-05-23] MEDS: SENNOSIDES/DOCUSATE SODIUM TAB PO SCH (08:58)
[2018-05-23] MEDS: FAMOTIDINE 20 MG TAB PO SCH (08:58)
[2018-05-23] MEDS: buPROPion XL 150 MG TAB PO SCH (08:58)
[2018-05-23] MEDS: CIPROFLOXACIN 500 MG TAB PO SCH (08:58)
[2018-05-23] MEDS: GABAPENTIN 300 MG CAP PO SCH (08:59)
[2018-05-23] MEDS: RIVAROXABAN 10 MG TAB PO SCH (08:59)
[2018-05-23] MEDS: FLUTICASONE NASAL 120 SPRAYS/16 GM MDI EACHNARE SCH (09:01)
[2018-05-23] MEDS: SODIUM FERRIC GLUCONAT/SUCROSE 125 MG in NS 100 ML IV SCH (09:02)
--- NOTE | 2018-05-23 12:53 | PDIAF ---
- Diagnosis Diagnosis: Left hip revision MARITZA Code Status: Full Code - Medication Management Discharge Medications: electronically signed and located in the Home Medication List. - Orders Services needed: Physical Therapy, Occupational Therapy Diet Recommendation: no restrictions on diet Diet Texture: Regular Texture Diet Additional Instructions: Toe touch weight bearing. Incision may get wet, however, no submerging. Home PT/ OT. Xarelto x 10 days post op. Follow up in 10-14 days for repeat evaluation and wound check. - Follow Up Care Current Providers and Referrals: Lyn Panchal [Primary Care Provider] - Colleen Dumont MD [Medical Doctor] -
--- NOTE | 2018-05-23 12:58 | ASMTLACE ---
LACE Length of stay for Answers: 7-13 days current admission Acuity / Level of Answers: Yes Care: Did the patient have an inpatient admission? Comorbidities - select Answers: Other Notes: Parkinson all that apply # of Emergency department Answers: 0 visits in the last 6 months Score: 9 Date Signed: 05/23/2018 12:57 PM Electronically Signed By:STONEY Crowley
--- NOTE | 2018-05-23 13:30 | ASMTCMCOM ---
CM Note CM Note Notes: PT rec HHC. Pt medically stable for d/c with [facility] OT/PT and unskilled care with [facility]. Orders for HC to be obtained via [facility] notified of pt d/c. Pt has all DME. Pt able to admit to [facility] within 30 days if needed. Pt to transport home. Date Signed: 05/23/2018 01:30 PM Electronically Signed By:STONEY Crowley
[2018-05-23] MEDS: CYCLOBENZAPRINE 10 MG TAB PO PRN (13:55)
--- NOTE | 2018-05-24 14:20 | ASDISCHSUM ---
Discharge Information Plan Status:SNF Medically Cleared to Leave: Discharge Date:05/23/2018 03:32 PM CM D/C Disposition: ADT D/C Disposition:Home Health Service Projected Discharge Date:05/23/2018 11:00 AM Transportation at D/C: Discharge Delay Reason: Follow-Up Date:05/23/2018 11:00 AM Discharge Slot: Final Diagnosis: Placement Information Referral Type:*Retirement/SNF Referral ID:[id number] Provider Name: Address 1: Phone Number: Address 2: Fax Number: City: Selection Factors: State: Referral Type:*Home Health Care Services Referral ID:[id number] Provider Name:[facility] Address 1:[address] [address] Address 2: City:[place] Selection Factors: State:[place] Patient Contact Information Contact Name:MACY Relationship: Address:[address] [place] [address] Work Phone: City:[place] Phone: [facility]/Zip Code:[place] [address] Email: Financial Information Financial Class:Medicare Advantage Plans Primary Plan Desc:[facility] MEDICARE COMPLETE Primary Plan Number:[id number] Secondary Plan Desc: Secondary Plan Number: Assessment Information LACE LACE Length of stay for Answers: 7-13 days current admission Acuity / Level of Answers: Yes Care: Did the patient have an inpatient admission? Comorbidities - select Answers: Other Notes: Parkinson all that apply # of Emergency department Answers: 0 visits in the last 6 months Score: 9 Date Signed: 05/23/2018 12:57 PM Electronically Signed By:STONEY Crowley [facility] CM Progress Note CM Note CM Note Notes: Pt had hip revision surgery, has been at [facility] since 04/29/18. OT/PT rec SNF today. Pt reports she is disappointed she likely has to go back to , was hoping she could go home. Pt resides with husb when she is at home. [facility] D/c plan of care: likely [facility] SN[facility] Date Signed: 05/18/2018 01:48 PM Electronically Signed By:STONEY Crowley [facility] Progress Note CM Note CM Note Notes: Met with patient to discuss discharge planning. Patient has been at [facility] and today refuses to return. She states there are numerous issues and she doesn't wish to get into the issues. When asked if she would consider another SNF, patient still refused. Patient was adamant today that she wants to discharge home. She does live with her , it is unclear how much assistance he is able to provide as he suffers from his own medical issues. Patient states she would be open to hiring private caregivers, resources provided today and CM encouraged her to call. She has also had [facility] in the past and at the very least, we could set-up services with them as well. Discussed case with Dr. May today. She is concerned about patient's cognitive ability to make this decision. She has ordered a cog eval to hopefully provide further direction. Joann from [facility] plans on visiting patient on Sunday to see if any of the 'issues' can be resolved. Will hold off on referral to [facility] for the time being and re-evaluate again post cog eval. CM will follow. Plan: TBD SNF ([facility]) vs HHC ([facility]) Date Signed: 05/20/2018 04:48 PM Electronically Signed By:Chaya Garza RN [facility] CM Progress Note CM Note CM Note Notes: Pt still declines SNF d/c today. Juve with [facility] met w pt today, pt reports no concern with [facility] she just wants to go home and does not want to consider any SNF. Juve informed pt if she gets home and wants to go back to [facility] pt can direct admit to [facility] from home withing 30 days. Pt reports she has called [facility] for unskilled care, is considering approx 4 hours/day. Pt provided list of DME places to rent hospital bed per her request. Pt provided loan closet list to find a wc. Pt would like [facility] at d/c, address/phone verified and Susan notified. Pt had [facility] prior to admission to [facility] but does not want [facility] any more. PT/OT continue to rec SNF. Pt had [facility] mahan today, rec inpatient acute rehab/SNF/24/hr supervision. D/c plan of care: [facility] PT/OT Date Signed: 05/21/2018 04:03 PM Electronically Signed By:STONEY Crowley [facility] CM Progress Note CM Note CM Note Notes: This CM spoke with pt ria Crawley, he is supporting pt decision to go home and not return to [facility]. Misbah reports they are in the process of getting a hospital bed, in the meantime she has a recliner to use, they are hiring [facility]. Misbah states he is retired and is home to provide 16/10 supervision. CM following. D/c plan of care: home with [facility] OT/PT Date Signed: 05/22/2018 03:45 PM Electronically Signed By:STONEY Crowley [facility] CM Progress Note CM Note CM Note Notes: PT rec HHC. Pt medically stable for d/c with [facility] OT/PT and unskilled care with [facility]. Orders for HC to be obtained via [facility] notified of pt d/c. Pt has all DME. Pt able to admit to [facility] within 30 days if needed. Pt to transport home. Date Signed: 05/23/2018 01:30 PM Electronically Signed By:STONEY Crowley Intervention Information Intervention Type:*IM-Signed Date of Service:05/23/2018 02:12 PM Patient Type:Inpatient Staff Member:Vanessa Xie Hours: Discipline: Severity: Comment:
--- NOTE | 2018-05-28 12:32 | GDS ---
[f rep st] DISCHARGE SUMMARY COMPLAINTS: Right hip instability with acetabular fracture. HISTORY OF PRESENT ILLNESS: This is a 77-year-old female who had previously undergone a left hip hem iarthroplasty years ago. She had been doing well until she had recent fall in [place] where she was diagnosed with an acetabular fracture. As time went on, she began to have episodes of instabilit y associated with the hip and then 3 episodes of dislocation put back in. She had been placed in a h ip abduction brace but wanted definitive treatment to treat the instability as well as the acetabular fracture. HOSPITAL COURSE: Patient brought to the operating room on the day of admission, where she underwent a left hip hemiarthroplasty conversion to a total hip arthroplasty with open reduction and internal f ixation of the acetabulum and reduction of a dislocated left hemiarthroplasty with fluoroscopy. Post operatively, she progressed slowly with physical therapy. Her pain was able to be kept under control reasonably well, but got better as time went on. Subsequently, once she had passed physical therapy milestones which took several days, she was able to be discharged to home with instructions to sigifredo mcconnell to be touchdown weightbearing on the left lower extremity and follow up in the office for further evaluation. 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 /[id number]/MODL
--- NOTE | 2018-05-28 13:29 | CPEKG ---
Test Reason : OPEN Blood Pressure : / mmHG Vent. Rate : 068 BPM Atrial Rate : 068 BPM P-R Int : 225 ms QRS Dur : 087 ms QT Int : 382 ms P-R-T Axes : 030 000 061 degrees QTc Int : 407 ms Sinus rhythm Prolonged RI interval Confirmed by Misbah Pink ([id number]) on 05/28/2018 1:28:55 PM Referred By: Colleen Dumont Confirmed By:Misbah Pink
== END 2018-05-23 15:32 | disposition home health service (06) | DRG 470 ==
LOC: F3N 12:44
PROVIDERS: ADMIT Orthopaedic Surgery; ATTEND Orthopaedic Surgery
PROC: 0SRE0JA Replacement of Left Hip Joint, Acetabular Surface with Synthetic Substitute, Uncemented, Open Approach (ICD-10-PCS; principal; 2018-05-17 13:45)
DX: S32.422A Displaced fracture of posterior wall of left acetabulum, initial encounter for closed fracture (principal); T84.021A Dislocation of internal left hip prosthesis, initial encounter; N39.0 Urinary tract infection, site not specified; E87.1 Hypo-osmolality and hyponatremia; W19.XXXA Unspecified fall, initial encounter; B96.5 Pseudomonas (aeruginosa) (mallei) (pseudomallei) as the cause of diseases classified elsewhere; G20 Parkinson's disease; D50.9 Iron deficiency anemia, unspecified; F41.8 Other specified anxiety disorders; K59.00 Constipation, unspecified; G89.29 Other chronic pain; M79.7 Fibromyalgia; Z96.651 Presence of right artificial knee joint
CPT/HCPCS: 92523-GN; 97116-GP; 97161-GP; 97165-GO; 97530-GO; 97530-GP; 97535-GO; C1713; J0171; J0690; J0696; J1170; J1885; J2250; J2270; J2405; J2704; J2765; J2795; J2916; J3010

== ENCOUNTER 2018-06-28 12:25 | Inpatient (IN) | payer OTHER ==
--- NOTE | 2018-06-28 12:51 | EDPHY ---
H & P Stated Complaint: L hip pain after fall Sunday. Time Seen by Provider: 06/28/18 12:35 HPI/ROS: Chief Complaint: Hip pain HPI: 77-year-old woman who is 5 weeks status post left hip replacement by Dr. Dumont. Two nights ago the patient was leaning over to her left side and fell to the ground, landing on her left hip. Since that time she has had pain in her hip is been unable to weight bear. She has only able to get around using a walker and toe-touch. She had to slight up and down the stairs on her buttocks. No numbness or weakness. No fevers or chills. No redness. ROS: 10 systems were reviewed and were negative except those elements noted in the HPI. PMH: Parkinson disease Social History: No smoking, no alcohol, no recreational drug use Family History: non-contributory Physical Exam: Gen: Awake, Alert, No Distress HEENT: Nose: no rhinorrhea Eyes: PERRLA, EOMI Mouth: Moist mucosa Neck: Supple, no JVD Chest: nontender, lungs clear to auscultation Heart: S1, S2 normal, no murmur Abd: Soft, non-tender, no guarding Back: no CVA tenderness, no midline tenderness Ext: no edema, she is holding her left hip a.m. Partial flexion. She is unable to flex or extend. She is unable to laterally are internally rotate secondary to pain. There is 2+ dorsalis pedis pulses. Sensations intact distally. Skin: no rash Neuro: CN II-XII intact, Sensation grossly intact, Strength 5/5 in bilateral upper and lower extremities - Personal History Current Tetanus Diphtheria and Acellular Pertussis (TDAP): Yes Tetanus Vaccine Date: within 10 years - Medical/Surgical History Hx Asthma: No Hx Chronic Respiratory Disease: No Hx Diabetes: No Hx Cardiac Disease: No Hx Renal Disease: No Hx Cirrhosis: No Hx Alcoholism: No Hx HIV/AIDS: No Hx Splenectomy or Spleen Trauma: No Other PMH: hysterectomy, appendix, parkinsons, total right knee, left hip replacement - Social History Smoking Status: Never smoked Constitutional: Initial Vital Signs Temperature (C) 36.5 C 06/28/18 12:33 Heart Rate 68 06/28/18 12:33 Respiratory Rate 16 06/28/18 12:33 Blood Pressure 122/64 H 06/28/18 12:33 O2 Sat (%) 92 06/28/18 12:33 O2 Delivery Mode [Post Nasal Cannula Procedure 4th] O2 Delivery Mode [Post Nasal Cannula Procedure 3rd] O2 Delivery Mode [Post Nasal Cannula Procedure 2nd] O2 Delivery Mode [Post Oxymask Procedure 1st] O2 Delivery Mode [Procedural Oxymask 4th] O2 Delivery Mode [Procedural Oxymask 3rd] O2 Delivery Mode [Procedural Oxymask 2nd] O2 Delivery Mode [Procedural Oxymask 1st] O2 Delivery Mode [.Immediate Oxymask Pre-Procedure] O2 Delivery Mode Room Air O2 (L/minute) [Post Procedure 2 4th] O2 (L/minute) [Post Procedure 2 3rd] O2 (L/minute) [Post Procedure 2 2nd] O2 (L/minute) [Post Procedure 15 1st] O2 (L/minute) [Procedural 4th] 15 O2 (L/minute) [Procedural 3rd] 15 O2 (L/minute) [Procedural 2nd] 15 O2 (L/minute) [Procedural 1st] 15 O2 (L/minute) [.Immediate Pre- 15 Procedure] O2 (L/minute) 2 Allergies/Adverse Reactions: tramadol Allergy (Verified 06/28/18 12:36) Pt reports confusion Home Medications: Medication Instructions Recorded Amantadine HCl [Amantadine] 100 mg PO DAILY PRN 05/16/18 Carbidopa/Levodopa 1 each PO TID@09,15,20 05/16/18 [Carbidopa-Levodopa 25-100 Tab] Fluticasone Nasal [Flonase Nasal 1 spray NASAL DAILY PRN 05/16/18 [place]] Mirabegron [Myrbetriq] 25 mg PO HS 05/16/18 Gabapentin [Neurontin 300 MG (*)] 300 mg PO TID 05/17/18 Vitamin B Complex [Vitamin B 1 each PO DAILY 05/17/18 Complex (OTC)] Acetaminophen [Tylenol ES 500 mg 500 mg PO Q6 PRN 06/28/18 (*)] Bupropion HCl [Wellbutrin Xl] 300 mg PO DAILY 06/28/18 Cholecalciferol (Vitamin D3) 5,000 unit PO DAILY 06/28/18 [Vitamin D3] Multivitamins [Multivitamin (*)] 1 each PO DAILY 06/28/18 oxyCODONE IR [Oxycodone Ir (*)] 5 mg PO BID PRN 06/28/18 Medical Decision Making - Diagnostics Imaging: Discussed imaging studies w/ call center dispatcher Radiologist, I viewed and interpreted images myself Procedures: Procedure: Procedural sedation. A pre-sedation evaluation was completed on the patient at 1400. Patient is an appropriate candidate for procedural sedation. The risks of the sedation were discussed with the patient. A time out was completed. The patient was sedated with 50 mcg of fentanyl and 100 mg of propofol. The patient was monitored with continuous pulse oximetry and environmental monitoring technician. There were no complications and no significant hypoxemia. I remained at the bedside for the sedation. The total time I spent in the procedural sedation was 20 min. ED Course/Re-evaluation: Patient here with a 2-day-old left proximal hip dislocation of her prosthesis. I have discussed with Dr. Dumont, the patient's orthopedic surgeon. He suspects that this might be a difficult relocation but given that we are distended bony ED he is requesting that I make at least 1 attempt at reduction which I think is reasonable. I have consented the patient to the procedure. She last had oral water at 9:00 a.m. This morning. No oral intake since. I have performed might pre sedation screening exam. Time-out was observed. I was able to achieve adequate sedation but unfortunately was unsuccessful at reducing the dislocation. There is hardly any movement she continued to have significant spasm of her proximal leg musculature. I have discussed with Dr. Dumont. Patient will need to be transferred to [facility] for likely reduction in the operating room under general anesthesia. - Data Points Medications Given: Acetaminophen (Tylenol) 325 - 650 mg PO Q4HRS PRN PRN Reason: Pain, Mild/Fever, Can Take PO Stop: 12/25/18 18:20 Last Admin: 06/29/18 06:34 Dose: 650 mg Carbidopa/Levodopa (Sinemet) 1 tab PO TID HOA Stop: 12/25/18 19:14 Last Admin: 06/30/18 17:04 Dose: 1 tab Gabapentin (Neurontin) 300 mg PO TID HOA Stop: 12/25/18 19:14 Last Admin: 06/30/18 17:04 Dose: 300 mg Oxycodone/Acetaminophen (Percocet 5/325) 1 - 2 tab PO Q3HRS PRN PRN Reason: Pain, Moderate Stop: 07/08/18 18:20 Last Admin: 06/30/18 17:04 Dose: 1 tab Temazepam (Restoril) 15 mg PO HS PRN PRN Reason: Sleep/Insomnia Stop: 12/25/18 18:20 Last Admin: 06/29/18 21:39 Dose: 15 mg Discontinued Medications Fentanyl (Sublimaze) 50 mcg IVP EDNOW ONE Stop: 06/28/18 14:31 Last Admin: 06/28/18 14:31 Dose: 50 mcg Fentanyl (Sublimaze) 25 - 100 mcg IVP Q5M PRN PRN Reason: PACU, IMMEDIATE Pain control Stop: 06/28/18 19:31 Last Admin: 06/28/18 19:51 Dose: 75 mcg Hydromorphone HCl (Dilaudid) 0.5 mg IVP EDNOW ONE Stop: 06/28/18 15:29 Last Admin: 06/28/18 15:32 Dose: 0.5 mg Lactated Ringer's (Lr) 1,000 mls @ 0 mls/hr IV ONCE ONE PRN Reason: KVO Stop: 06/28/18 16:50 Last Admin: 06/28/18 16:59 Dose: 1,000 mls Sodium Chloride (Ns) 1,000 mls @ 0 mls/hr IV ONCE ONE PRN Reason: Wide Open Stop: 06/28/18 14:31 Last Admin: 06/28/18 14:30 Dose: 1,000 mls Midazolam HCl (Versed) 1 mg IVP ONCALL ONE Stop: 06/28/18 17:08 Last Admin: 06/28/18 17:29 Dose: 1 mg Morphine Sulfate (Morphine) 1 - 4 mg IVP Q10M PRN PRN Reason: PACU, PAIN Stop: 06/28/18 19:31 Last Admin: 06/28/18 19:45 Dose: 2 mg Propofol (Diprivan) 40 mg IVP EDNOW ONE Stop: 06/28/18 14:34 Last Admin: 06/28/18 14:33 Dose: 40 mg Propofol (Diprivan) 20 mg IVP EDNOW ONE Stop: 06/28/18 14:36 Last Admin: 06/28/18 14:35 Dose: 20 mg Propofol (Diprivan) 40 mg IVP EDNOW ONE Stop: 06/28/18 14:38 Last Admin: 06/28/18 14:37 Dose: 40 mg Departure - Departure Disposition: [facility] Inpatient Acute Clinical Impression: Hip dislocation, left Condition: Good
[2018-06-28] MEDS ORDERED: fentaNYL 100 MCG/2 ML INJ ONE ×4 (14:10→19:08)
[2018-06-28] MEDS ORDERED: PROPOFOL 200 MG/20 ML VIAL ONE ×2 (14:11→17:32)
[2018-06-28] MEDS ORDERED: NS 1,000 ML IV ONE (14:30)
[2018-06-28] MEDS ORDERED: fentaNYL 100 MCG/2 ML INJ IVP ONE (14:30)
[2018-06-28] MEDS ORDERED: PROPOFOL 200 MG/20 ML VIAL IVP ONE ×3 (14:33→14:37)
[2018-06-28] MEDS ORDERED: HYDROmorphONE/DILAUDID 2 MG/ML INJ IVP ONE (15:28)
[2018-06-28] MEDS ORDERED: LR 1,000 ML IV ONE (16:49)
[2018-06-28] MEDS ORDERED: MIDAZOLAM 2 MG/2 ML VIAL ONE (17:03)
[2018-06-28] MEDS ORDERED: MIDAZOLAM 2 MG/2 ML VIAL IVP ONE (17:07)
--- NOTE | 2018-06-28 17:08 | PDANEPAE ---
ANE Past Medical History - Cardiovascular History Hx Hypertension: No Hx Arrhythmias: No Hx Chest Pain: No Hx Coronary Artery / Peripheral Vascular Disease: No Hx CHF / Valvular Disease: No Hx Palpitations: No - Pulmonary History Hx COPD: No Hx Asthma/Reactive Airway Disease: No Hx Recent Upper Respiratory Infection: No Hx Oxygen in Use at Home: No Hx Sleep Apnea: No - Neurologic History Hx Cerebrovascular Accident: No Hx Seizures: No Hx Dementia: No Neurologic History Comment: parkinsons - Endocrine History Hx Diabetes: No - Renal History Hx Renal Disorders: Yes Renal History Comment: cystitis without hematuria - Liver History Hx Hepatic Disorders: No - Neurological & Psychiatric Hx Hx Neurological and Psychiatric Disorders: Yes Neurological / Psychiatric History Comment: depression. anxiety - Cancer History Hx Cancer: No - Congenital Disorder History Hx Congenital Disorders: No - GI History Hx Gastrointestinal Disorders: Yes Gastrointestinal History Comment: constipation - Other Health History Other Health History: hx of anemia. chronic pain. fibromyalgia - Surgical History Prior Surgeries: 03/02/11 left cataract surgery with Edgar. 02/02/11 right cataract surgery with Edgar. 08/19/09 L1 kyphoplasty with VVC. hysterectomy. tonsillectomy. r total knee ANE Review of Systems Review of Systems: ANE Patient History - Allergies Allergies/Adverse Reactions: tramadol Allergy (Verified 06/28/18 12:36) Pt reports confusion - Home Medications Home Medications: Amantadine HCl [Amantadine] 05/16/18 [Last Taken 06/27/18] Carbidopa/Levodopa [Carbidopa-Levodopa 25-100 Tab] 05/16/18 [Last Taken 09:00] Fluticasone Nasal [Flonase Nasal [place]] 05/16/18 [Last Taken 1 Week Ago ~] Mirabegron [Myrbetriq] 05/16/18 [Last Taken 06/27/18] buPROPion XL [Wellbutrin 150mg XL] 05/16/18 [Last Taken 06/27/18] Cholecalciferol Vit D3 [Vitamin D3 (*)] 05/17/18 [Last Taken 06/25/18] Gabapentin [Neurontin 300 MG (*)] 05/17/18 [Last Taken 06/28/18 09:00] Vitamin B Complex [Vitamin B Complex (OTC)] 05/17/18 [Last Taken 1 Week Ago ~] oxyCODONE IR [Oxycodone Ir (*)] 06/28/18 [Last Taken 06/28/18 09:00] - NPO status NPO Since - Liquids (Date): 06/28/18 NPO Since - Liquids (Time): 09:00 NPO Since - Solids (Date): 06/27/18 NPO Since - Solids (Time): 19:00 - Smoking Hx Smoking Status: Never smoked - Family Anes Hx Family Hx Anesthesia Complications: no ANE Labs/Vital Signs - Vital Signs Blood Pressure: 153/56 Heart Rate: 67 Respiratory Rate: 16 O2 Sat (%): 96 Height: 165.1 cm Weight: 58.513 kg ANE Physical Exam - Airway Neck exam: FROM Mallampati Score: Class 2 Mouth exam: dentures - Pulmonary Pulmonary: no respiratory distress - Cardiovascular Cardiovascular: regular rate and rhythym - ASA Status ASA Status: II ANE Anesthesia Plan Anesthesia Plan: general endotracheal anesthesia
[2018-06-28] MEDS ORDERED: LIDOCAINE 2% 100 MG/5 ML SYR ONE (17:32)
[2018-06-28] MEDS ORDERED: ROCURONIUM 50 MG/5 ML VIAL ONE (17:32)
[2018-06-28] MEDS ORDERED: SUGAMMADEX SODIUM 200 MG/2 ML VIAL IVP ONE (18:13)
[2018-06-28] MEDS ORDERED: ACETAMINOPHEN 325 MG TAB PO PRN (18:21)
[2018-06-28] MEDS ORDERED: ONDANSETRON 4 MG/2 ML VIAL IVP PRN ×2 (18:21→18:31)
--- NOTE | 2018-06-28 18:21 | POSTOPPROG ---
Post Op Note Date of Operation: 06/28/18 Surgeon: Colleen Dumont Anesthesia: GET(General Endotracheal) Pre-op Diagnosis: l jocelyne dislocation Procedure: l jocelyne relocation with fluoro Inf/Abcess present in the surg proc area at time of surgery?: No EBL: Minimal
[2018-06-28] MEDS ORDERED: NALOXONE HCL 0.4 MG/ML INJ IVP PRN (18:31)
[2018-06-28] MEDS ORDERED: ALBUTEROL 3 ML DEYVIAL IH PRN (18:31)
--- NOTE | 2018-06-28 18:32 | POSTANESTH ---
Post Anesthetic Evaluation Cardiovascular Status: Similar to Pre-Op Cond Respiratory Status: Similar to Pre-op Cond. Level of Consciousness/Mental Status: Mildly Sleepy, Arousable Pain Control: Adequate, Prn Tx Ordered Nausea/Vomiting Control: Adequate, Prn Tx Ordered Complications Possibly Related to Anesthesia: None Noted
[2018-06-28] MEDS: fentaNYL 100 MCG/2 ML INJ IVP PRN ×4 (18:40→19:51)
--- NOTE | 2018-06-28 18:50 | GOP ---
[f rep st] OPERATIVE REPORT DATE OF OPERATION: 06/28/2018 SURGEON: Colleen Dumont MD ANESTHESIA: By endotracheal intubation. PREOPERATIVE DIAGNOSIS: Left total hip arthroplasty dislocation. POSTOPERATIVE DIAGNOSIS: Left total hip arthroplasty dislocation. PROCEDURE PERFORMED: Left total hip arthroplasty relocation with use of fluoroscopy. FINDINGS: INDICATIONS: This is a 77-year-old female who has had a complicated history with her left hip. She previously had a hemiarthroplasty that had recurrent instability, was converted to a total hip. Had been doing well for the last 5 to 6 weeks. Fell 2 days ago, had some pain and deformity, and decided to come in today to eventually have it diagnosed in the emergency room. She was diagnosed with a to julio hip dislocation. Emergency room tried to put it in, was unsuccessful. She was, therefore, broug ht to the operating room for relocation. DESCRIPTION OF PROCEDURE: Patient was brought to the operating room after the left side had been mitali ntified as correct side by the patient, nurse, and physician. Once in the operating room, she was pl aced under general anesthesia using endotracheal intubation. Once asleep, she was placed on a tracti on table with a well-padded peroneal post. Using fluoroscopy, traction was applied. Ultimately, it was able to bring the leg into flexion and internal rotation and pull the hip into place. Once in pl dewayne, is noted to be stable. An abduction wedge pillow was put into place. She was then transferred onto a stretcher. She was woken up, extubated, and transferred to recovery room in good condition. /[id number]/MODL
[2018-06-28] MEDS: CARBIDOPA/LEVODOPA 25 MG/100 MG TAB PO SCH ×2 (19:19→22:43)
[2018-06-28] MEDS: GABAPENTIN 300 MG CAP PO SCH ×2 (19:19→22:43)
[2018-06-28] MEDS: OXYCODONE/APAP 5/325 TAB PO PRN (20:47)
[2018-06-28] MEDS: TEMAZEPAM 15 MG CAP PO PRN (22:43)
[2018-06-29] MEDS: CARBIDOPA/LEVODOPA 25 MG/100 MG TAB PO SCH ×3 (10:54→21:39)
[2018-06-29] MEDS: GABAPENTIN 300 MG CAP PO SCH ×3 (10:54→21:38)
[2018-06-29] MEDS: OXYCODONE/APAP 5/325 TAB PO PRN ×3 (10:57→21:39)
--- NOTE | 2018-06-29 12:04 | SOAPPROG ---
SOAP Progress Note Assessment/Plan: Assessment: Plan: Subjective: states she's sore but better than pre-op foot nvi with min pain to log roll await btace may DC after brace placement Objective: Vital Signs Temp Pulse Resp BP Pulse Ox 36.8 C 73 16 109/59 L 93 06/29/18 07:33 06/29/18 07:33 06/29/18 07:33 06/29/18 07:33 06/29/18 07:33 06/28/18 06/29/18 06/30/18 05:59 05:59 05:59 Intake Total 940 750 Output Total 350 1100 Balance 590 -350 ICD10 Worksheet Patient Problems: Problems Problem Status Onset Hip dislocation, left Acute UTI (urinary tract infection) Acute
--- NOTE | 2018-06-29 13:27 | ASMTCMCOM ---
CM Note CM Note Notes: CM reviewed pt's chart for d/c planning. Pt is a 77 y/o woman who is 5 weeks status post left hip replacement. Pt fell to the ground 3 nights ago, landing on her hip, and has since had pain in her hip and an inability to bear weight. Pt underwent left total hip arthroplasty relocation with use of fluoroscopy on 06/29/2018. No OT/PT have been ordered. Pt received home health PT following her last d/c. CM will follow for recommendations. D/C Plan: TBD Date Signed: 06/29/2018 01:26 PM Electronically Signed By:Rosetta Mckeon
[2018-06-29] MEDS: TEMAZEPAM 15 MG CAP PO PRN (21:39)
[2018-06-30] MEDS: OXYCODONE/APAP 5/325 TAB PO PRN ×4 (05:10→22:06)
[2018-06-30] MEDS: CARBIDOPA/LEVODOPA 25 MG/100 MG TAB PO SCH ×3 (10:14→22:05)
[2018-06-30] MEDS: GABAPENTIN 300 MG CAP PO SCH ×3 (10:14→22:05)
--- NOTE | 2018-06-30 11:02 | SOAPPROG ---
SOAP Progress Note Assessment/Plan: Assessment: Plan: Subjective: states she's sore foot nvi with min pain to log roll dc when passes pt with brace on Objective: Vital Signs Temp Pulse Resp BP Pulse Ox 36.6 C 70 16 131/72 H 94 06/30/18 08:00 06/30/18 08:00 06/30/18 08:00 06/30/18 08:00 06/30/18 08:00 06/29/18 06/30/18 07/01/18 05:59 05:59 05:59 Intake Total 940 1880 Output Total 350 1400 800 Balance 590 480 -800 ICD10 Worksheet Patient Problems: Problems Problem Status Onset Hip dislocation, left Acute UTI (urinary tract infection) Acute
--- NOTE | 2018-06-30 14:22 | ASMTCMCOM ---
CM Note CM Note Notes: Met with patient and RN Dalia. Patient sitting on edge of bed and is tearful Per PT they recommend she return to SNF. Patient is adamant that she not do that as her is ill at home. They have friends as resources as both adult children are I have provided patient with DME list and references for hiring additional help as she wants to go home with HHC at this point. There is no physician order for either HHC nor SNF at this point. RM to obtain and order for patient discharge to be held pending fulfilling her needs to set up a hospital bed at home. CM to follow. Plan: Home with HHC, DME and hopefully additional hired caregivers. Date Signed: 06/30/2018 02:21 PM Electronically Signed By:Apryl Sutherland RN
--- NOTE | 2018-06-30 16:11 | PDMN ---
Medical Necessity Medical necessity: [facility] S580 Hip: Acquired Dislocation, Closed, Closed Reduction , Amb: 77 yo w/ recent MARITZA experienced fall, dislocated MARITZA, initially OBS for amb surg s/p closed hip reduction for dislocation, planning to d/c home after brace retrieved from home and PT eval, but pt changed to IP status as requires additional MN for ongoing PT care. Per PT: abductor brace needed at all times and pt required total asst to don abd brace in bed w/ mod asst to sit, stand, walk. Very impaired gait. Does not meet discharge criteria. Change to IP status 06/30/18@1526.
[2018-06-30] MEDS: TEMAZEPAM 15 MG CAP PO PRN (22:07)
[2018-07-01] MEDS: OXYCODONE/APAP 5/325 TAB PO PRN ×3 (06:17→15:19)
[2018-07-01] MEDS: GABAPENTIN 300 MG CAP PO SCH ×2 (10:02→15:19)
[2018-07-01] MEDS: CARBIDOPA/LEVODOPA 25 MG/100 MG TAB PO SCH ×2 (10:03→15:19)
--- NOTE | 2018-07-01 12:09 | PDIAF ---
- Diagnosis Diagnosis: Left total hip dislocation Code Status: Full Code - Medication Management Discharge Medications: electronically signed and located in the Home Medication List. - Orders Services needed: Physical Therapy, Occupational Therapy Diet Recommendation: no restrictions on diet Diet Texture: Regular Texture Diet Additional Instructions: wear brace when OOB 50% WB on lle Keep dressing clean and dry for 7 days FU in office in 7-10 days - Follow Up Care Current Providers and Referrals: Colleen Dumont MD [Medical Doctor] - As per Instructions
--- NOTE | 2018-07-01 12:11 | SOAPPROG ---
SOAP Progress Note Assessment/Plan: Assessment: Payal is POD#3 s/p left total hip arthroplasty reduction. She is doing well and has been up with therapy. PE: Dressing clean and dry. Brace is in place but is ill-fitting. DF/PF foot intact. Calf is soft to compression without pain Plan: Plan for discharge home with home health and [facility]. She is having Automatic Typewriter Inspector adjust her brace now and knows to be in the brace when out of bed. 50% weight bearing. Follow up in 10-14 days for repeat evaluation 07/01/18 12:17 Objective: Vital Signs Temp Pulse Resp BP Pulse Ox 36.7 C 60 16 147/67 H 92 07/01/18 07:25 07/01/18 07:25 07/01/18 07:25 07/01/18 07:25 07/01/18 07:25 06/30/18 07/01/18 07/02/18 05:59 05:59 05:59 Intake Total 500 Output Total 550 Balance -50 ICD10 Worksheet Patient Problems: Problems Problem Status Onset Hip dislocation, left Acute UTI (urinary tract infection) Acute
[2018-07-01 15:47] VITALS: BP 132/67
--- NOTE | 2018-07-01 16:59 | ASMTLACE ---
LACE Length of stay for Answers: 2 days current admission Acuity / Level of Answers: Yes Care: Did the patient have an inpatient admission? Comorbidities - select Answers: Other Notes: parkinsons all that apply # of Emergency department Answers: 1-2 visits in the last 6 months Score: 7 Date Signed: 07/01/2018 04:58 PM Electronically Signed By:STONEY Crowley
--- NOTE | 2018-07-01 17:03 | ASMTCMCOM ---
CM Note CM Note Notes: Pt medically stable for d/c with continued services of [facility] and pt has hired [facility] for private pay unskilled care. Orders for HC to be obtained via [facility]. Pt has a couch bed on her main level, she returned the hospital bed she rented from [facility] at her last d/c. Pt to wear brace now per ortho rec. Pt to transport home. Date Signed: 07/01/2018 05:02 PM Electronically Signed By:STONEY Crowley
--- NOTE | 2018-07-02 08:57 | ASDISCHSUM ---
Discharge Information Plan Status:Home with Home Health Medically Cleared to Leave: Discharge Date:07/01/2018 06:05 PM CM D/C Disposition: ADT D/C Disposition:Home Health Service Projected Discharge Date:07/01/2018 11:00 AM Transportation at D/C: Discharge Delay Reason: Follow-Up Date:07/01/2018 11:00 AM Discharge Slot: Final Diagnosis: Placement Information Referral Type:*Home Health Care Services Referral ID:[id number] Provider Name:[facility] Address 1:[address] Address 2: City:[place] Selection Factors: State:[place] Patient Contact Information Contact Name:MACY Relationship: Address:[address] [place] [address] Work Phone: [facility] Phone: State/Zip Code:[place] [address] Email: Financial Information Financial Class:Medicare Advantage Plans Primary Plan Desc:AARP MEDICARE COMPLETE Primary Plan Number:[id number] Secondary Plan Desc: Secondary Plan Number: Assessment Information LACE LACE Length of stay for Answers: 2 days current admission Acuity / Level of Answers: Yes Care: Did the patient have an inpatient admission? Comorbidities - select Answers: Other Notes: parkinsons all that apply # of Emergency department Answers: 1-2 visits in the last 6 months Score: 7 Date Signed: 07/01/2018 04:58 PM Electronically Signed By:STONEY Crowley [facility] Progress Note CM Greg DALLAS Note Notes: CM reviewed pt's chart for d/c planning. Pt is a 77 y/o woman who is 5 weeks status post left hip replacement. Pt fell to the ground 3 nights ago, landing on her hip, and has since had pain in her hip and an inability to bear weight. Pt underwent left total hip arthroplasty relocation with use of fluoroscopy on 06/29/2018. No OT/PT have been ordered. Pt received home health PT following her last d/c. CM will follow for recommendations. D/C Plan: TBD Date Signed: 06/29/2018 01:26 PM Electronically Signed By:Rosetta Mckeon [facility] CM Progress Note CM Note CM Note Notes: Met with patient and MELISSA Gómez. Patient sitting on edge of bed and is tearful Per PT they recommend she return to SNF. Patient is adamant that she not do that as her is ill at home. They have friends as resources as both adult children are I have provided patient with DME list and references for hiring additional help as she wants to go home with [facility] at this point. There is no physician order for either HHC nor SNF at this point. RM to obtain and order for patient discharge to be held pending fulfilling her needs to set up a hospital bed at home. CM to follow. Plan: Home with [facility], DME and hopefully additional hired caregivers. Date Signed: 06/30/2018 02:21 PM Electronically Signed By:Apryl Sutherland RN [facility] CM Progress Note CM Note CM Note Notes: Pt medically stable for d/c with continued services of [facility] and pt has hired [facility] for private pay unskilled care. Orders for HC to be obtained via [facility]. Pt has a couch bed on her main level, she returned the hospital bed she rented from [facility] at her last d/c. Pt to wear brace now per humberto BONILLA rec. Pt to transport home. Date Signed: 07/01/2018 05:02 PM Electronically Signed By:STONEY Crowley Intervention Information
== END 2018-07-01 18:05 | disposition home health service (06) | DRG 561 ==
LOC: CED 12:25 → CEDHOLD 14:49 → UNDOADMOB 14:49 → F3N 19:17 → OBSVTOIN 06-30 15:26
PROVIDERS: ADMIT Orthopaedic Surgery; ATTEND Orthopaedic Surgery
PROC: 0SSBXZZ Reposition Left Hip Joint, External Approach (ICD-10-PCS; principal; 2018-06-28 16:00)
DX: T84.021A Dislocation of internal left hip prosthesis, initial encounter (principal); W19.XXXA Unspecified fall, initial encounter; G20 Parkinson's disease; Z96.642 Presence of left artificial hip joint; Z96.651 Presence of right artificial knee joint
CPT/HCPCS: 73502-PO; 96361-ER; 96374-ER; 96375-ER; 97116-GP; 97162-GP; 97166-GO; 97530-GP; 99156-ER; 99157-ER; 99285-ER; G0378; J1170; J2001; J2250; J2270; J2704; J3010

== ENCOUNTER 2018-07-31 10:08 | Inpatient (IN) | payer OTHER ==
[2018-07-31] MEDS ORDERED: fentaNYL 100 MCG/2 ML INJ ONE ×3 (10:45→16:12)
[2018-07-31] MEDS ORDERED: fentaNYL 100 MCG/2 ML INJ IVP ONE ×2 (10:47→11:18)
--- NOTE | 2018-07-31 10:59 | EDPHY ---
H & P Time Seen by Provider: 07/31/18 10:18 HPI/ROS: CHIEF COMPLAINT: Left hip pain HISTORY OF PRESENT ILLNESS: Patient states on Sunday, 5 days ago, she was walking with her walker when she felt a "wobbliness" and some pain and strain into her left hip. Since that time she has had difficulty bearing weight. She did have a brace that she applied and has been using that for limited mobility. She denies any fall. She has no numbness or tingling. Of note she had a left hip arthroplasty with pelvic fracture repair performed late April. She was seen here early June for hip dislocation after a fall. She required the OR for closed reduction at that time. Patient states she last ate breakfast about 2 hr prior to arrival. No other complaints. REVIEW OF SYSTEMS: Constitutional: No fever, no chills. Eyes: No discharge. ENT: No sore throat. Cardiovascular: No chest pain, no palpitations. Respiratory: No cough, no shortness of breath. Gastrointestinal: No abdominal pain, no vomiting. Genitourinary: No dysuria. Musculoskeletal: No back pain. Skin: No rashes. Neurological: No headache. General Appearance: Alert, no distress. Eyes: Pupils equal and round no pallor or injection. ENT, Mouth: Mucous membranes moist. Respiratory: There are no retractions, lungs are clear to auscultation. Cardiovascular: Regular rate and rhythm. Gastrointestinal: Abdomen is soft and nontender, no masses, bowel sounds normal. Neurological: Awake, alert, no focal neurologic deficits. Skin: Warm and dry, no rashes. Musculoskeletal: Neck is supple nontender. Left lower extremity is shortened, some internal rotation. Distal circulation, sensation, movement intact. Pelvis stable. Psychiatric: Patient is oriented X 3, there is no agitation. Medical/surgical history: Parkinson's disease, surgeries include appendectomy, hysterectomy, TKA, MARITZA 2019. Social history: Nonsmoker, rare alcohol. Smoking Status: Never smoked Constitutional: Initial Vital Signs Temperature (C) 36.5 C 07/31/18 10:19 Heart Rate 73 07/31/18 10:19 Respiratory Rate 18 07/31/18 10:19 Blood Pressure 126/92 H 07/31/18 10:19 O2 Sat (%) 95 07/31/18 10:19 O2 Delivery Mode Room Air Allergies/Adverse Reactions: tramadol Allergy (Verified 07/31/18 10:19) Pt reports confusion Home Medications: Medication Instructions Recorded Amantadine HCl [Amantadine] 100 mg PO DAILY PRN 05/16/18 Carbidopa/Levodopa 1 each PO TID@09,15,20 05/16/18 [Carbidopa-Levodopa 25-100 Tab] Fluticasone Nasal [Flonase Nasal 1 spray NASAL DAILY PRN 05/16/18 [place]] Mirabegron [Myrbetriq] 25 mg PO HS 05/16/18 Gabapentin [Neurontin 300 MG (*)] 300 mg PO TID 05/17/18 Vitamin B Complex [Vitamin B 1 each PO DAILY 05/17/18 Complex (OTC)] Acetaminophen [Tylenol ES 500 mg 500 mg PO Q6 PRN 06/28/18 (*)] Bupropion HCl [Wellbutrin Xl] 300 mg PO DAILY 06/28/18 Cholecalciferol (Vitamin D3) 5,000 unit PO DAILY 06/28/18 [Vitamin D3] Multivitamins [Multivitamin (*)] 1 each PO DAILY 06/28/18 oxyCODONE IR [Oxycodone Ir (*)] 5 mg PO BID PRN 06/28/18 Acetaminophen [Tylenol 325mg (*)] 325 - 650 mg PO Q4HRS PRN tab 07/01/18 Carbidopa/Levodopa 25/100Mg 1 tab PO TID tab 07/01/18 [Sinemet 25/100 MG (*)] Gabapentin [Neurontin 300 MG (*)] 300 mg PO TID cap 07/01/18 Temazepam [Restoril 15 MG (*)] 15 mg PO HS PRN cap 07/01/18 oxyCODONE/APAP 5/325 [Percocet 1 - 2 tab PO Q3HRS PRN #20 tab 07/01/18 5/325 (*)] Medical Decision Making - Diagnostics Imaging Results: Imaging Impressions Hip X-Ray 07/31/18 10:18 Impression: 1. Superior dislocation of the left hip arthroplasty with new linear calcification adjacent to the lesser trochanter that could represent an acute fracture or sequela of old trauma. 2. Subacute acetabular fracture adjacent to the acetabular cup, similar to the comparisons. Posterior hip dislocation. Imaging: I viewed and interpreted images myself ED Course/Re-evaluation: 10:[address] Correa, on-call for [facility]. He called back after 5 min asking for patient to be sent to [facility] emergency department and to maintain patient NPO. 10:[address] Moris Velazquez, [facility] ED attending. Accepted for transfer. [facility] called. 11:00 a.m. physician apartment assistant manager Shira called for Dr. Dumont. Discussed options of attempting reduction at [facility] and I recommended not taking on risks of procedural sedation with non NPO status given difficulty of reduction last time and fact that patient's hip has likely been dislocated for 5 days. 12:05 p.m. ambulance arrival, transfer paperwork completed, accepted in transfer to [facility] Emergency Department. Patient remained stable. Differential Diagnosis: Patient with posterior hip dislocation of left hip arthroplasty which likely occurred 5 days ago. No report or evidence of a fall or other significant trauma. No evidence of neurovascular compromise. Given patient's recent p.o. Intake and unsuccessful reduction on her prior [facility] visit I opted to transfer patient directly to [facility] for likely operative closed reduction by health informatics specialist. Discussed with Dr. Correa, orthopedist, discussed with Dr. Velazquez, ED physician, discussed with ortho physician apartment assistant manager Shira. Patient kept NPO in the emergency department. - Data Points Laboratory Results: 07/31/18 10:48 POC Sodium 139 mEq/L mEq/L (135-145) POC Potassium 4.5 mEq/L mEq/L (3.3-5.0) POC Chloride 104.0 mEq/L mEq/L (97-110) POC Total CO2 26 mEq/L mEq/L (22-31) POC BUN 18 mg/dL mg/dL (7-23) POC Creatinine 0.6 mg/dL mg/dL (0.6-1.0) POC Glucose 88 mg/dL mg/dL (70-100) POC Calcium 9.5 mg/dL mg/dL (8.5-10.4) Medications Given: Discontinued Medications Fentanyl (Sublimaze) 50 mcg IVP EDNOW ONE Stop: 07/31/18 10:48 Last Admin: 07/31/18 10:48 Dose: 50 mcg Fentanyl (Sublimaze) 50 mcg IVP EDNOW ONE Stop: 07/31/18 11:19 Last Admin: 07/31/18 11:20 Dose: 50 mcg Sodium Chloride (Ns) 500 mls @ 0 mls/hr IV EDNOW ONE; TKO PRN Reason: Protocol Stop: 07/31/18 11:15 Last Admin: 07/31/18 11:15 Dose: 500 mls Point of Care Test Results: CBC CBC Collection Date 07/31/18 CBC Collection Time 10:42 WBC 6.23 RBC 4.06 HGB 11.0 HCT 34.9 PLT 251 Neut # 4.58 Neut 73.5 LYMPH # 1.08 LYMPH 17.3 MCV 86.0 Chemistry 07/31/18 10:48 POC Sodium 139 mEq/L mEq/L (135-145) POC Potassium 4.5 mEq/L mEq/L (3.3-5.0) POC Chloride 104.0 mEq/L mEq/L (97-110) POC Total CO2 26 mEq/L mEq/L (22-31) POC BUN 18 mg/dL mg/dL (7-23) POC Creatinine 0.6 mg/dL mg/dL (0.6-1.0) POC Glucose 88 mg/dL mg/dL (70-100) POC Calcium 9.5 mg/dL mg/dL (8.5-10.4) Departure - Departure Referrals: Lyn Panchal [Primary Care Provider] - As per Instructions
[2018-07-31] MEDS ORDERED: NS 500 ML IV ONE (11:14)
[2018-07-31] MEDS ORDERED: LR 1,000 ML IV ONE (13:08)
[2018-07-31] MEDS ORDERED: PROPOFOL/EMULSION 500 MG/50 ML BOTTLE IV ONE (14:04)
[2018-07-31] MEDS ORDERED: ROCURONIUM 50 MG/5 ML VIAL ONE ×2 (15:12→15:13)
[2018-07-31] MEDS ORDERED: ONDANSETRON 4 MG/2 ML VIAL ONE (15:13)
[2018-07-31] MEDS ORDERED: SUGAMMADEX SODIUM 200 MG/2 ML VIAL IVP ONE (15:14)
[2018-07-31] MEDS ORDERED: PROMETHAZINE HCL 25 MG SUPPR PR PRN (15:15)
[2018-07-31] MEDS ORDERED: PROMETHAZINE HCL 25 MG/ML INJ IVP PRN (15:15)
[2018-07-31] MEDS ORDERED: BISACODYL 10 MG SUPP PR PRN (15:15)
[2018-07-31] MEDS ORDERED: ONDANSETRON 4 MG/2 ML VIAL IVP PRN ×2 (15:15→15:33)
[2018-07-31] MEDS ORDERED: LACTULOSE 20 GM/30 ML UDCUP PO PRN (15:15)
[2018-07-31] MEDS ORDERED: diphenhydrAMINE 25 MG CAP PO PRN (15:15)
[2018-07-31] MEDS ORDERED: MAGNESIUM HYDROXIDE 30 ML UDCUP PO PRN (15:15)
[2018-07-31] MEDS ORDERED: ONDANSETRON DISINTEGRATING 4 MG TAB PO PRN (15:15)
[2018-07-31] MEDS ORDERED: DIPHENOXYLATE/ATROPINE LOMOTIL 1 TAB PO PRN (15:15)
[2018-07-31] MEDS ORDERED: FLUTICASONE NASAL 120 SPRAYS/16 GM MDI EACHNARE PRN (15:20)
[2018-07-31] MEDS ORDERED: AMANTADINE HCL 100 MG CAP PO PRN (15:20)
--- NOTE | 2018-07-31 15:24 | SOAPPROG ---
LAY Progress Note Assessment/Plan: Assessment: Payal is a pleasant 77 year old female s/p left total hip arthroplasty and ORIF acetabulum. She dislocated her left MARITZA this past Sunday and was seen at [facility] ER on 07/31/18. Closed reduction was attempted in the OR unsuccessfully. Plan: Plan to proceed with open reduction of MARITZA and application of acetabular augmentation ring due to recurrent dislocation tomorrow afternoon. Patient is to remain NWB. NPO after midnight. 07/31/18 15:21 07/31/18 15:24 Objective: Vital Signs Temp Pulse Resp BP Pulse Ox 36.7 C 70 16 145/77 H 95 07/31/18 13:14 07/31/18 13:14 07/31/18 13:14 07/31/18 13:14 07/31/18 13:14 07/30/18 07/31/18 08/01/18 05:59 05:59 05:59 Intake Total 1000 Balance 1000 ICD10 Worksheet Patient Problems: Problems Problem Status Onset Hip dislocation, left Acute UTI (urinary tract infection) Acute
--- NOTE | 2018-07-31 15:26 | POSTOPPROG ---
Post Op Note Date of Operation: 07/31/18 Surgeon: Colleen Dumont Anesthesia: GET(General Endotracheal) Pre-op Diagnosis: Left total hip arthroplasty dislocation Post-op Diagnosis: Left total hip arthroplasty dislocation Procedure: attempted closed reduction Inf/Abcess present in the surg proc area at time of surgery?: No
[2018-07-31] MEDS ORDERED: LR 1,000 ML IV SCH (15:30)
[2018-07-31] MEDS ORDERED: LABETALOL HCL 5 MG/ML 20 ML MDV IVP PRN (15:33)
[2018-07-31] MEDS ORDERED: LR 500 ML IV PRN (15:33)
[2018-07-31] MEDS ORDERED: DEXAMETHASONE 4 MG/ML VIAL IVP PRN (15:33)
[2018-07-31] MEDS ORDERED: NALOXONE HCL 0.4 MG/ML INJ IVP PRN (15:33)
[2018-07-31] MEDS ORDERED: ACETAMINOPHEN 500 MG TAB PO PRN (15:33)
[2018-07-31] MEDS ORDERED: oxyCODONE IR 5 MG TAB PO PRN (15:33)
[2018-07-31] MEDS ORDERED: ALBUTEROL 3 ML DEYVIAL IH PRN (15:33)
[2018-07-31] MEDS ORDERED: PHENYLEPHRINE HCL 100 MCG/ML SYR IVP PRN (15:33)
--- NOTE | 2018-07-31 15:37 | PDANEPAE ---
ANE History of Present Illness dislocated left hip s/p jocelyne ANE Past Medical History - Cardiovascular History Hx Hypertension: No Hx Arrhythmias: No Hx Chest Pain: No Hx Coronary Artery / Peripheral Vascular Disease: No Hx CHF / Valvular Disease: No Hx Palpitations: No - Pulmonary History Hx COPD: No Hx Asthma/Reactive Airway Disease: No Hx Recent Upper Respiratory Infection: No Hx Oxygen in Use at Home: No Hx Sleep Apnea: No Sleep Apnea Screening Result - Last Documented: Negative - Neurologic History Hx Cerebrovascular Accident: No Hx Seizures: No Hx Dementia: No Neurologic History Comment: parkinsons - Endocrine History Hx Diabetes: No Hypothyroid: No Obesity: no - Renal History Hx Renal Disorders: Yes Renal History Comment: cystitis without hematuria - Liver History Hx Hepatic Disorders: No - Neurological & Psychiatric Hx Hx Neurological and Psychiatric Disorders: Yes Neurological / Psychiatric History Comment: depression. anxiety - Cancer History Hx Cancer: No - Congenital Disorder History Hx Congenital Disorders: No - GI History Hx Gastrointestinal Disorders: Yes Gastrointestinal History Comment: constipation - Other Health History Other Health History: hx of anemia. chronic pain. fibromyalgia - Surgical History Prior Surgeries: leeft hip partial hip 04/2018. 12/01/10 left cataract surgery with Edgar. 02/02/11 right cataract surgery with Edgar. 08/19/09 L1 kyphoplasty with VVC. hysterectomy. tonsillectomy. r total knee ANE Review of Systems Review of systems is: negative Review of Systems: - Exercise capacity Exercise capacity: >=4 METS METS (RN): 4 METS ANE Patient History - Allergies Allergies/Adverse Reactions: tramadol Allergy (Verified 07/31/18 10:19) Pt reports confusion - Home Medications Home medications: home medication list seen and reviewed Home Medications: Amantadine HCl [Amantadine] 100 mg PO DAILY PRN 05/16/18 [Last Taken 07/31/18 08 :00] Carbidopa/Levodopa [Carbidopa-Levodopa 25-100 Tab] 2 each PO TID@08,14,20 [Last Taken 07/31/18 08:00] Fluticasone Nasal [Flonase Nasal [place]] 1 spray EACHNARE DAILY PRN 05/16/18 [ Last Taken 07/28/18] Mirabegron [Myrbetriq] 25 mg PO HS 05/16/18 [Last Taken 07/30/18] Vitamin B Complex [Vitamin B Complex (OTC)] 1 each PO DAILY 05/17/18 [Last Taken 07/30/18] Acetaminophen [Tylenol ES 500 mg (*)] 500 mg PO Q6 PRN 06/28/18 [Last Taken 11/11 08:30] Bupropion HCl [Wellbutrin Xl] 300 mg PO DAILY 06/28/18 [Last Taken 07/29/18] Cholecalciferol (Vitamin D3) [Vitamin D3] 5,000 units PO DAILY 06/28/18 [Last Taken 07/30/18] Multivitamins [Multivitamin (*)] 1 each PO DAILY 06/28/18 [Last Taken 07/30/18] oxyCODONE IR [Oxycodone Ir (*)] 5 mg PO BID PRN 06/28/18 [Last Taken 07/31/18 08 :30] Gabapentin [Neurontin 300 MG (*)] 300 mg PO TID 07/31/18 [Last Taken 07/31/18 08 :30] - NPO status NPO Status: no food or drink >8 hours (6 hours for light meal) NPO Since - Liquids (Date): 07/31/18 NPO Since - Liquids (Time): 09:00 NPO Since - Solids (Date): 07/31/18 NPO Since - Solids (Time): 08:00 - Anes Hx Anes Hx: no prior problems - Smoking Hx Smoking Status: Never smoked - Family Anes Hx Family Hx Anesthesia Complications: no ANE Labs/Vital Signs - Vital Signs Vital Signs: reviewed preoperatively; see RN documention for details Blood Pressure: 145/77 Heart Rate: 70 Respiratory Rate: 16 O2 Sat (%): 95 Height: 162.56 cm Weight: 58.967 kg ANE Physical Exam - Airway Neck exam: FROM Mallampati Score: Class 2 Mouth exam: dentures - Pulmonary Pulmonary: no respiratory distress, clear to auscultation - Cardiovascular Cardiovascular: regular rate and rhythym - ASA Status ASA Status: II ANE Anesthesia Plan Anesthesia Plan: general endotracheal anesthesia
[2018-07-31] MEDS ORDERED: HYDROmorphONE/DILAUDID 1 MG/ML INJ ONE (15:57)
[2018-07-31] MEDS: fentaNYL 100 MCG/2 ML INJ IVP PRN ×3 (15:59→16:51)
[2018-07-31] MEDS: HYDROmorphONE/DILAUDID 1 MG/ML INJ IVP PRN ×3 (16:00→17:19)
[2018-07-31] MEDS ORDERED: oxyCODONE IR 5 MG TAB ONE (16:12)
--- NOTE | 2018-07-31 19:22 | GOP ---
[f rep st] OPERATIVE REPORT DATE OF OPERATION: 07/31/2018 SURGEON: Colleen Dumont MD JOB TRAINING SPECIALIST: Shira Lamar, certified PA, whose presence was medically necessary. ANESTHESIA: Endotracheal intubation. PREOPERATIVE DIAGNOSIS: Left total hip arthroplasty dislocation. POSTOPERATIVE DIAGNOSIS: Left total hip arthroplasty dislocation. PROCEDURE PERFORMED: Attempted closed reduction of left total hip arthroplasty. FINDINGS: INDICATIONS: This is a 77-year-old female, who previously had undergone a revision from a hemiarthro plasty of the left hip that had dislocated when she fell down and broke her pelvis. She underwent a revision with an open reduction, internal fixation of the pelvis using an acetabular cup and conversi on to a total hip. Postoperatively, she had one episode of dislocation that was able to be closed re duced. She has had a second dislocation 5 days ago, but had difficulty getting in to be seen by a ysician. She was brought in today to the emergency room and found to have dislocated hip. She was, therefore, brought to the operating room emergently in order to alleviate her discomfort but also to put the hip back into place. DESCRIPTION OF PROCEDURE: Patient brought to the operating room after the left side had been identif ied as the correct side by the patient, nurse, and physician. Once in the operating room, she was pl aced under general anesthesia using endotracheal intubation. Once asleep, several reductions were at tempted on the closed reduction, which were unsuccessful. She was, therefore, placed on the arch tab le, where again, traction was performed. Still unable to get reduction of the hip. It was, therefor e, decided to do an open reduction, however, it was decided that she would need a constrained liner, which is not available at the hospital at this time. Therefore, she was woken up, extubated, transfe rred onto a stretcher, and she will be brought back tomorrow for formal revision of the hip with a co nstrained liner at that time. /[id number]/MODL
[2018-07-31] MEDS: ACETAMINOPHEN 325 MG TAB PO SCH (20:15)
[2018-07-31] MEDS: CARBIDOPA/LEVODOPA 25 MG/100 MG TAB PO SCH (20:15)
[2018-07-31] MEDS: SENNOSIDES/DOCUSATE SODIUM TAB PO SCH (20:15)
[2018-07-31] MEDS: oxyCODONE IR 5 MG TAB PO PRN (20:16)
[2018-07-31] MEDS: FAMOTIDINE 20 MG TAB PO SCH (20:16)
[2018-07-31] MEDS: GABAPENTIN 300 MG CAP PO SCH (20:16)
[2018-08-01] MEDS: oxyCODONE IR 5 MG TAB PO PRN ×3 (00:57→20:23)
[2018-08-01] MEDS: Mirabegron [Myrbetriq] 25 MG PO SCH ×2 (01:24→20:28)
[2018-08-01] MEDS: GABAPENTIN 300 MG CAP PO SCH ×4 (01:25→20:24)
[2018-08-01] MEDS: ACETAMINOPHEN 325 MG TAB PO SCH ×4 (03:22→20:23)
[2018-08-01] MEDS: CARBIDOPA/LEVODOPA 25 MG/100 MG TAB PO SCH ×3 (07:28→20:23)
[2018-08-01] MEDS: FAMOTIDINE 20 MG TAB PO SCH ×2 (07:29→20:23)
[2018-08-01] MEDS: buPROPion XL 150 MG TAB PO SCH (07:29)
[2018-08-01] MEDS: CHOLECALCIFEROL VIT D3 2,000 UNITS TAB/CAP PO SCH (07:30)
[2018-08-01] MEDS: VITAMIN B COMPLEX 1 EA CAP/TAB PO SCH (07:31)
[2018-08-01] MEDS: SENNOSIDES/DOCUSATE SODIUM TAB PO SCH ×2 (07:31→20:24)
[2018-08-01] MEDS: CYCLOBENZAPRINE 10 MG TAB PO PRN (07:33)
[2018-08-01] MEDS: MULTIVITAMINS 1 EACH TAB PO SCH (09:19)
--- NOTE | 2018-08-01 11:08 | SOAPPROG ---
LAY Progress Note Assessment/Plan: Assessment: 77 year old female s/p left MARITZA with ORIF of acetabulum - late April Left hip dislocation 6 days ago - Dr. Dumont attempted closed reduction of left hip dislocation in OR yesterday - unsuccessful Plan: Dr. Dumont plans to proceed with open reduction of MARITZA and application of acetabular augmentation ring due to recurrent dislocation this afternoon Remain NPO NWBing on left lower extremity Subjective: Patient states she is having quite a bit of pain in her left hip but also in her thigh, gluteal and abdominal muscles which she thinks is secondary to the attempted closed reduction performed yesterday evening. No major complaints or concerns at this time. She agrees with Dr. Dumont's plan to proceed with open reduction of MARITZA and application of acetabular augmentation ring due to recurrent dislocation this afternoon. Objective: Vital Signs Temp Pulse Resp BP Pulse Ox 36.8 C 73 16 124/65 H 93 08/01/18 07:26 08/01/18 07:26 08/01/18 07:26 08/01/18 07:26 08/01/18 07:26 07/31/18 08/01/18 08/02/18 05:59 05:59 05:59 Intake Total 1710 Output Total 2250 Balance -540 Patient resting in bed, no acute distress. Involuntary movements of the upper and lower extremities noted, likely due to Parkinson's. Left lower extremity is shortened. Ecchymosis noted along the anterolateral left hip. Tenderness diffusely about the left hip. She can actively DF and PF left foot and great toe. Grossly NVI distally. ICD10 Worksheet Patient Problems: Problems Problem Status Onset Hip dislocation, left Acute UTI (urinary tract infection) Acute
--- NOTE | 2018-08-01 13:41 | ASMTCMCOM ---
CM Note CM Note Notes: Pt back at [facility] with recurrent hip dislocation. Dr. Dumont attempted closed reduction of L hip dislocation, unsuccessful. Pt to OR again today for open reduction of MARITZA and application of acetabular augmentation ring due to recurrent dislocation. Therapies have yet to be ordered. Chart review indicates pt was at [facility] for her hip in April and June [address] at [facility] in April 2018. The last two admissions pt has declined SNF, adamant she will return home to be with her dog and who has unspecified medical issues of his own limiting how he can help, it seems pt care for him. Pt is open with [facility]. Per Susan at [facility] the pt home care PT [facility] has tried to help pt with resources, pt seems to fire help soon after hiring them. At last d/c pt was going to hire [facility] for unskilled care. Pt declined a home care [employer]. Pt has rented a hospital bed before, she no longer has it, using a rollout couch which according to [facility] may be broken. D/c plan is TBD. OT/PT to eval after surgery. [facility] can resume care of pt, PT [facility] is available for any meetings/questions. CM will support pt as best can with services/resources for her goals, TBD if pt wants SNF d/c this time or home with [facility] again. Date Signed: 08/01/2018 01:40 PM Electronically Signed By:STONEY Crowley
[2018-08-01] MEDS ORDERED: LR 1,000 ML IV ONE (14:59)
--- NOTE | 2018-08-01 15:46 | PDANEPAE ---
ANE History of Present Illness L hip revision ANE Past Medical History - Cardiovascular History Hx Hypertension: No Hx Arrhythmias: No Hx Chest Pain: No Hx Coronary Artery / Peripheral Vascular Disease: No Hx CHF / Valvular Disease: No Hx Palpitations: No - Pulmonary History Hx COPD: No Hx Asthma/Reactive Airway Disease: No Hx Recent Upper Respiratory Infection: No Hx Oxygen in Use at Home: No Hx Sleep Apnea: No Sleep Apnea Screening Result - Last Documented: Negative - Neurologic History Hx Cerebrovascular Accident: No Hx Seizures: No Hx Dementia: No Neurologic History Comment: parkinsons - Endocrine History Hx Diabetes: No Hypothyroid: No Obesity: no - Renal History Hx Renal Disorders: Yes Renal History Comment: cystitis without hematuria - Liver History Hx Hepatic Disorders: No - Neurological & Psychiatric Hx Hx Neurological and Psychiatric Disorders: Yes Neurological / Psychiatric History Comment: depression. anxiety - Cancer History Hx Cancer: No - Congenital Disorder History Hx Congenital Disorders: No - GI History Hx Gastrointestinal Disorders: Yes Gastrointestinal History Comment: constipation - Other Health History Other Health History: hx of anemia. chronic pain. fibromyalgia - Chronic Pain History Chronic Pain: Yes - Surgical History Prior Surgeries: leeft hip partial hip 04/2018. 12/01/10 left cataract surgery with Edgar. 02/02/11 right cataract surgery with Edgar. 08/19/09 L1 kyphoplasty with VVC. hysterectomy. tonsillectomy. r total knee ANE Review of Systems Review of Systems: - Exercise capacity METS (RN): 4 METS ANE Patient History - Allergies Allergies/Adverse Reactions: tramadol Allergy (Verified 07/31/18 10:19) Pt reports confusion - Home Medications Home Medications: Amantadine HCl [Amantadine] 100 mg PO DAILY PRN 05/16/18 [Last Taken 07/31/18 08 :00] Carbidopa/Levodopa [Carbidopa-Levodopa 25-100 Tab] 2 each PO TID@08,14,20 [Last Taken 07/31/18 08:00] Fluticasone Nasal [Flonase Nasal [place]] 1 spray EACHNARE DAILY PRN 05/16/18 [ Last Taken 07/28/18] Mirabegron [Myrbetriq] 25 mg PO HS 05/16/18 [Last Taken 07/30/18] Vitamin B Complex [Vitamin B Complex (OTC)] 1 each PO DAILY 05/17/18 [Last Taken 07/30/18] Acetaminophen [Tylenol ES 500 mg (*)] 500 mg PO Q6 PRN 06/28/18 [Last Taken 11/11 08:30] Bupropion HCl [Wellbutrin Xl] 300 mg PO DAILY 06/28/18 [Last Taken 07/29/18] Cholecalciferol (Vitamin D3) [Vitamin D3] 5,000 units PO DAILY 06/28/18 [Last Taken 07/30/18] Multivitamins [Multivitamin (*)] 1 each PO DAILY 06/28/18 [Last Taken 07/30/18] oxyCODONE IR [Oxycodone Ir (*)] 5 mg PO BID PRN 06/28/18 [Last Taken 07/31/18 08 :30] Gabapentin [Neurontin 300 MG (*)] 300 mg PO TID 07/31/18 [Last Taken 07/31/18 08 :30] - NPO status NPO Status: no food or drink >8 hours NPO Since - Liquids (Date): 08/01/18 NPO Since - Liquids (Time): 00:00 NPO Since - Solids (Date): 08/01/18 NPO Since - Solids (Time): 00:00 - Anes Hx Anes Hx: no prior problems - Smoking Hx Smoking Status: Never smoked - Alcohol Use Alcohol Use: None - Family Anes Hx Family Anes Hx: none Family Hx Anesthesia Complications: no ANE Labs/Vital Signs - Vital Signs Blood Pressure: 140/75 Heart Rate: 80 Respiratory Rate: 19 O2 Sat (%): 96 Height: 162.56 cm Weight: 58.967 kg ANE Physical Exam - Airway Neck exam: FROM Mallampati Score: Class 2 Mouth exam: poor dentition - Pulmonary Pulmonary: no respiratory distress - Cardiovascular Cardiovascular: regular rate and rhythym - ASA Status ASA Status: III ANE Anesthesia Plan Anesthesia Plan: GA w LMA
[2018-08-01] MEDS ORDERED: fentaNYL 100 MCG/2 ML INJ ONE ×3 (15:52→19:41)
[2018-08-01] MEDS ORDERED: PROPOFOL 200 MG/20 ML VIAL ONE (15:53)
[2018-08-01] MEDS ORDERED: BUPIVACAINE/EPI 0.5% 30 ML SDV ONE (15:56)
[2018-08-01] MEDS ORDERED: POLYMYXIN B SULFATE 500,000 UNIT/10 ML SYR IRR ONE ×2 (15:57→16:01)
[2018-08-01] MEDS ORDERED: BACITRACIN 50,000 UNITS/10 ML SYR IRR ONE (15:57)
[2018-08-01] MEDS ORDERED: ceFAZolin 2 GM/DEXTROSE 100 ML IV ONE (16:13)
[2018-08-01] MEDS ORDERED: TRANEXAMIC ACID 3,000 MG in NS (SYRINGE) 50 ML IRR ONE (16:14)
[2018-08-01] MEDS ORDERED: ROPIVACAINE 0.2% 80 MG, EPINEPHrine 0.2 MG, KETOROLAC TROMETHAMINE 30 MG, morphINE 10 M... IU ONE (16:14)
--- NOTE | 2018-08-01 16:14 | PDMN ---
Medical Necessity Medical necessity: Pt meets inpt criteria per MD order and Musculoskeletal Surgery GRG, attempted closed reduction of L hip dislocation yesterday- unsuccessful, plan to proceed today w/open reduction of MARITZA and application of acetabular augmentation ring due to recurrent dislocation. 77 y/o w/presented w/ difficulty bearing wt on L hip and recent dislocation of L MARITZA, admitted for above surgeries and post-op care. Hx Parkinson's, MARITZA 2019. Est LOS>2MN for ongoing med nec tx.
[2018-08-01] MEDS ORDERED: TRANEXAMIC ACID 3,000 MG/50 ML BAG IRR ONE (16:38)
[2018-08-01] MEDS ORDERED: HYDROCODONE/APAP 5/325 TAB PO PRN (18:09)
[2018-08-01] MEDS ORDERED: ONDANSETRON 4 MG/2 ML VIAL IVP PRN (18:09)
[2018-08-01] MEDS ORDERED: NALOXONE HCL 0.4 MG/ML INJ IVP PRN (18:09)
[2018-08-01] MEDS ORDERED: HYDROmorphONE/DILAUDID 1 MG/ML INJ IVP PRN (18:09)
[2018-08-01] MEDS ORDERED: ACETAMINOPHEN 500 MG TAB PO PRN (18:09)
[2018-08-01] MEDS ORDERED: DEXAMETHASONE 4 MG/ML VIAL IVP PRN (18:09)
[2018-08-01] MEDS ORDERED: oxyCODONE IR 5 MG TAB PO PRN (18:09)
[2018-08-01] MEDS ORDERED: ONDANSETRON 4 MG/2 ML VIAL ONE (18:11)
[2018-08-01] MEDS ORDERED: DEXAMETHASONE 4 MG/ML VIAL ONE (18:11)
[2018-08-01] MEDS ORDERED: ROCURONIUM 50 MG/5 ML VIAL ONE ×2 (18:11)
[2018-08-01] MEDS ORDERED: POLYETHYLENE GLYCOL 3350 17 GM PKT PO PRN (18:14)
[2018-08-01] MEDS ORDERED: LACTULOSE 20 GM/30 ML UDCUP PO PRN (18:14)
[2018-08-01] MEDS ORDERED: DIPHENOXYLATE/ATROPINE LOMOTIL 1 TAB PO PRN (18:14)
[2018-08-01] MEDS ORDERED: MAGNESIUM HYDROXIDE 30 ML UDCUP PO PRN (18:14)
[2018-08-01] MEDS ORDERED: BISACODYL 10 MG SUPP PR PRN (18:14)
--- NOTE | 2018-08-01 18:25 | POSTOPPROG ---
Post Op Note Date of Operation: 08/01/18 Surgeon: Colleen Dumont Deputy Treasurer: Shira Lamar Anesthesiologist: Stef Anesthesia: GET(General Endotracheal) Pre-op Diagnosis: Left total hip dislocation Post-op Diagnosis: Left total hip dislocation Procedure: Left total hip arthroplasty revision Inf/Abcess present in the surg proc area at time of surgery?: No Depth: Deep Incisional (Fascial)
--- NOTE | 2018-08-01 18:44 | POSTANESTH ---
Post Anesthetic Evaluation Cardiovascular Status: Normal, Stable, Similar to Pre-Op Cond Respiratory Status: Normal, Stable, Similar to Pre-op Cond. Level of Consciousness/Mental Status: Can Participate in Eval, Alert and Oriented Pain Control: Adequate, Prn Tx Ordered Nausea/Vomiting Control: Adequate, Prn Tx Ordered Complications Possibly Related to Anesthesia: None Noted
[2018-08-01] MEDS: fentaNYL 100 MCG/2 ML INJ IVP PRN ×2 (18:58→19:15)
[2018-08-01] MEDS ORDERED: HYDROmorphONE/DILAUDID 1 MG/ML INJ ONE (19:41)
[2018-08-01] MEDS: HYDROmorphONE/DILAUDID 1 MG/ML INJ IVP PRN (19:45)
[2018-08-01] MEDS: TEMAZEPAM 15 MG CAP PO PRN (20:24)
[2018-08-01] MEDS: LR 1,000 ML IV SCH (20:26)
[2018-08-01] MEDS ORDERED: SENNOSIDES/DOCUSATE SODIUM TAB PO SCH (21:00)
--- NOTE | 2018-08-01 22:41 | GOP ---
[f rep st] OPERATIVE REPORT DATE OF OPERATION: 08/01/2018 SURGEON: Colleen Dumont MD TODDLER CAREGIVER: Shira Lamar PA-C, whose presence was medically necessary. ANESTHESIA: By endotracheal intubation. PREOPERATIVE DIAGNOSIS: Left total hip instability. POSTOPERATIVE DIAGNOSIS: Left total hip instability. PROCEDURE PERFORMED: Left total hip revision to a locked cup. FINDINGS: INDICATIONS: This was a 77-year-old female, who appears with dislocated hip approximately 6 days ago . Was only seen yesterday in the emergency room. Found to have a dislocated hip. She had a reducti on attempted in the operating room, was unsuccessful. It was therefore decided to do an open reducti on, but to convert her current articulation to a locked cup so that it would not be able to dislocate subsequent to this. DESCRIPTION OF PROCEDURE: The patient was brought to the operating room after the left side had been identified as correct side by the patient, nurse, and physician. Once in the operating room, she wa s placed under general anesthesia using endotracheal intubation. Once asleep, she was placed on a tr action table in a well-padded peroneal post and both legs placed in appropriate leg mo. The left hip and flank were sterilely prepped and draped in the usual fashion using SHAYNA/solution. Once prepp ed and draped, incision was made on the anterior lateral portion of the hip using an old scar for an anterior approach. Sharp dissection was carried down through the skin and subcutaneous layers. Blee ding was controlled using electrocautery. The thick capsule overlying the fascia of the TFL was inci sed with the TFL brought to the side. She had abundant amount of scarring tissue in the area making the iliopsoas and capsule very tight. The cup was able to be found and the inner liner was able to b e removed without difficulty. Attention was then turned to the actual hip prosthesis itself. The ba ll was removed. A locking liner from [place], a Trident 0 degree constrained acetabular insert size E was put into place and noted to fit securely. The trunnion of the femoral component was then clean ed and dried with a 22 mm +[address]. An abundant amount of of traction had to be placed in order to gain length, and the head was finally able to be levered into the hip. Once in place, t he hip was noted be very stable. X-rays were taken to ensure proper positioning. Once in proper pos ition, the wound was thoroughly irrigated with a Betadine solution then irrigated with tranexamic aci d. Joint cocktail was injected in the posterior capsule, the muscle belly of the ileal psoas and the tensor fascia davon. The wound was then closed in layers to include 0 Vicryl suture for the fascial layer overlying the TFL, 0 Vicryl and 2-0 Vicryl suture for the subcutaneous layers, and a 3-0 V-Loc suture and a running subcuticular stitch for the skin. 30 cc of Marcaine was infused around the actu al skin incision itself. The wound was then dressed with Steri-Strips, Xeroform, 4 x 4, and Tegaderm . The patient was completely undraped in the operating room, had both legs placed taken out of the l eg mo. Peroneal post was removed. She was transferred onto a bed. She was woken up, extubated, had her hip immobilizer put into place. She was then sent to recovery room in good condition. /[id number]/MODL
[2018-08-02] MEDS: ceFAZolin 2 GM/DEXTROSE 100 ML IV SCH ×2 (00:35→07:20)
[2018-08-02] MEDS: ACETAMINOPHEN 325 MG TAB PO SCH ×4 (04:39→20:27)
[2018-08-02] MEDS: LR 1,000 ML IV SCH (05:13)
[2018-08-02 05:33] LABS: PLATELET COUNT 185 10^3/uL (150-400)
[2018-08-02] MEDS: CHOLECALCIFEROL VIT D3 2,000 UNITS TAB/CAP PO SCH (07:52)
[2018-08-02] MEDS: RIVAROXABAN 10 MG TAB PO SCH (07:52)
[2018-08-02] MEDS: SENNOSIDES/DOCUSATE SODIUM TAB PO SCH ×2 (07:53→20:28)
[2018-08-02] MEDS: buPROPion XL 150 MG TAB PO SCH (07:54)
[2018-08-02] MEDS: FAMOTIDINE 20 MG TAB PO SCH ×2 (07:55→20:27)
[2018-08-02] MEDS: CARBIDOPA/LEVODOPA 25 MG/100 MG TAB PO SCH ×3 (07:55→20:27)
[2018-08-02] MEDS: VITAMIN B COMPLEX 1 EA CAP/TAB PO SCH (07:55)
[2018-08-02] MEDS: MULTIVITAMINS 1 EACH TAB PO SCH (07:55)
[2018-08-02] MEDS: GABAPENTIN 300 MG CAP PO SCH ×3 (07:55→21:54)
[2018-08-02] MEDS: POLYETHYLENE GLYCOL 3350 17 GM PKT PO PRN (07:56)
[2018-08-02] MEDS: oxyCODONE IR 5 MG TAB PO PRN ×4 (08:05→21:53)
--- NOTE | 2018-08-02 09:41 | SOAPPROG ---
SOAP Progress Note Assessment/Plan: Assessment: 77 year old female s/p left MARITZA with ORIF of acetabulum - late April 2017 Left hip dislocation 7 days ago, didn't present to ER until 5 days after injury - Dr. Dumont attempted closed reduction of left hip dislocation in OR on 07-31-18 - unsuccessful s/p left MARITZA revision to a locked cup - POD 1 Acute blood loss anemia Parkinson's Disease Plan: Begin d/c planning - patient does not want to go to rehab; states during a previous rehab stay she was kept in bed the majority of the day and only did PT for 15 minutes per day. Spoke to [facility], going to see if patient qualifies for inpatient rehab 1100 cc blood loss in surgery - acute blood loss anemia - currently receiving 2 units PRBC Decreased urine output - patient had approximately 1800 mL IV fluid in PACU, 2 L on 3N floor. Hospital consulted Patient may WBAT with hip brace in place. Left hip flexion limited to 45 degrees. Continue PT/OT efforts Continue oral pain medication, muscle relaxer - tylenol, celebrex, oxycodone, flexeril 08/02/18 09:46 Subjective: Patient states the left hip is sore. She is not wanting to go to rehab since she had a bad experience at a rehab in the past. She would prefer to go home, but her is sick and would not be able to provide much care for her. Patient states she has problems with urinating/incontinence due to having a Darling catheter in for too long after a previous surgery that resulted in nerve issues. She denies SOB, CP, fever, chills, nausea. Objective: Vital Signs Temp Pulse Resp BP Pulse Ox 36.5 C 74 16 92/53 L 99 08/02/18 08:11 08/02/18 08:11 08/02/18 08:11 08/02/18 08:11 08/02/18 08:11 Microbiology 08/01/18 17:13 Gram Stain - Final Hip - Eswab Laboratory Results 08/02/18 05:20 08/01/18 08/02/18 08/03/18 05:59 05:59 05:59 Intake Total 1710 2380 Output Total 2250 1600 Balance -540 780 Patient resting in bed, eating breakfast. No acute distress. Brace in place, left hip flexion locked at 45 degrees. Limb lengths appear equal. LLE: Wound dressings are clean, dry and intact. Mild ecchymosis noted at anterior hip and pubic region. Lower leg compartments are soft and nontender. She can actively DF and PF left foot and great toe against resistance. Negative Homans sign bilaterally. Grossly NVI distally. ICD10 Worksheet Patient Problems: Problems Problem Status Onset Hip dislocation, left Acute UTI (urinary tract infection) Acute
[2018-08-02] MEDS: CYCLOBENZAPRINE 10 MG TAB PO PRN (10:55)
--- NOTE | 2018-08-02 15:04 | ASMTCMCOM ---
CM Note CM Note Notes: PT rec SNF. [facility] inpatient rehab consult order is in, pt likely may not qualify. Pt would like to go to the [facility] inpatient rehab but understands she likely will not qualify. Pt verbalizes she may need SNF rehab now and requests a referral to [facility], pt does not want to return to [facility] where she went in April 2018. Referral sent in [facility]. Pt says after her last hospitalization she did not end up hiring Olivia [facility] due to high cost. D/c plan of care: Likely SNF Date Signed: 08/02/2018 03:03 PM Electronically Signed By:STONEY Crowley
--- NOTE | 2018-08-02 16:42 | PDHOSCONS ---
History and Physical - Chief Complaint L Hip Pain - History of Present Illness Payal Chopra is a 77 yo F with a PMHx of Fibromyalgia, Parkinson's, overactive bladder who presents to [facility] for L Hip pain s/p surgical correction. This morning patient complains of some L hip pain after surgery yesterday evening. Pain is sharp, 5/10, worse with movement and improved with rest. History Information - Allergies/Home Medication List Allergies/Adverse Reactions: tramadol Allergy (Verified 07/31/18 10:19) Pt reports confusion Home Medications: Amantadine HCl [Amantadine] 100 mg PO DAILY PRN 05/16/18 [Last Taken 07/31/18 08 :00] Carbidopa/Levodopa [Carbidopa-Levodopa 25-100 Tab] 2 each PO TID@08,14,20 [Last Taken 07/31/18 08:00] Fluticasone Nasal [Flonase Nasal [place]] 1 spray EACHNARE DAILY PRN 05/16/18 [ Last Taken 07/28/18] Mirabegron [Myrbetriq] 25 mg PO HS 05/16/18 [Last Taken 07/30/18] Vitamin B Complex [Vitamin B Complex (OTC)] 1 each PO DAILY 05/17/18 [Last Taken 07/30/18] Acetaminophen [Tylenol ES 500 mg (*)] 500 mg PO Q6 PRN 06/28/18 [Last Taken 11/11 08:30] Bupropion HCl [Wellbutrin Xl] 300 mg PO DAILY 06/28/18 [Last Taken 07/29/18] Cholecalciferol (Vitamin D3) [Vitamin D3] 5,000 units PO DAILY 06/28/18 [Last Taken 07/30/18] Multivitamins [Multivitamin (*)] 1 each PO DAILY 06/28/18 [Last Taken 07/30/18] oxyCODONE IR [Oxycodone Ir (*)] 5 mg PO BID PRN 06/28/18 [Last Taken 07/31/18 08 :30] Gabapentin [Neurontin 300 MG (*)] 300 mg PO TID 07/31/18 [Last Taken 07/31/18 08 :30] I have personally reviewed and updated: family history, medical history, social history, surgical history - Past Medical History Additional medical history: Parkinsons. Recurrent UTI. Neuropathy - Surgical History Additional surgical history: MARITZA, with revision and ORIF of acetabular fracture 04/2018 - Family History Positive for: non-pertinent - Social History Smoking Status: Never smoked Alcohol Use: None Review of Systems Review of Systems: ROS: 10pt was reviewed & negative except for what was stated in HPI & below Physical Exam Physical Exam: Temp Pulse Resp BP Pulse Ox 36.8 C 76 14 113/54 L 97 08/02/18 16:00 08/02/18 16:00 08/02/18 16:00 08/02/18 16:00 08/02/18 16:00 O2 (L/minute) 2 Constitutional: no apparent distress Eyes: PERRL Ears, Nose, Mouth, Throat: moist mucous membranes Cardiovascular: regular rate and rhythym Respiratory: no respiratory distress Gastrointestinal: soft, non-tender abdomen Skin: warm Musculoskeletal: pain with ROM Neurologic: AAOx3 Psychiatric: interacting appropriately Lab Data & Imaging Review 08/02/18 15:00 WBC 6.49 10^3/uL (3.80-9.50) 08/02/18 05:20 RBC 2.60 10^6/uL (4.18-5.33) L 08/02/18 05:20 Hgb 8.4 g/dL (12.6-16.3) L 08/02/18 15:00 Hct 25.5 % (38.0-47.0) L 08/02/18 15:00 MCV 86.9 fL (81.5-99.8) 08/02/18 05:20 MCH 27.3 pg (27.9-34.1) L 08/02/18 05:20 MCHC 31.4 g/dL (32.4-36.7) L 08/02/18 05:20 RDW 14.7 % (11.5-15.2) 08/02/18 05:20 Plt Count 185 10^3/uL (150-400) 08/02/18 05:20 MPV 8.5 fL (8.7-11.7) L 08/02/18 05:20 Neut % (Auto) 77.1 % (39.3-74.2) H 08/02/18 05:20 Lymph % (Auto) 15.9 % (15.0-45.0) 08/02/18 05:20 Andrews % (Auto) 6.0 % (4.5-13.0) 08/02/18 05:20 Eos % (Auto) 0.2 % (0.6-7.6) L 08/02/18 05:20 Baso % (Auto) 0.3 % (0.3-1.7) 08/02/18 05:20 Nucleat RBC Rel Count 0.0 % (0.0-0.2) 08/02/18 05:20 Absolute Neuts (auto) 5.01 10^3/uL (1.70-6.50) 08/02/18 05:20 Absolute Lymphs (auto) 1.03 10^3/uL (1.00-3.00) 08/02/18 05:20 Absolute Monos (auto) 0.39 10^3/uL (0.30-0.80) 08/02/18 05:20 Absolute Eos (auto) 0.01 10^3/uL (0.03-0.40) L 08/02/18 05:20 Absolute Basos (auto) 0.02 10^3/uL (0.02-0.10) 08/02/18 05:20 Absolute Nucleated RBC 0.00 10^3/uL (0-0.01) 08/02/18 05:20 Immature Gran % 0.5 % (0.0-1.1) 08/02/18 05:20 Immature Gran # 0.03 10^3/uL (0.00-0.10) 08/02/18 05:20 POC Sodium 139 mEq/L (135-145) 07/31/18 10:48 POC Potassium 4.5 mEq/L (3.3-5.0) 07/31/18 10:48 POC Chloride 104.0 mEq/L (97-110) 07/31/18 10:48 POC Total CO2 26 mEq/L (22-31) 07/31/18 10:48 POC BUN 18 mg/dL (7-23) 07/31/18 10:48 POC Creatinine 0.6 mg/dL (0.6-1.0) 07/31/18 10:48 POC Glucose 88 mg/dL (70-100) 07/31/18 10:48 POC Calcium 9.5 mg/dL (8.5-10.4) 07/31/18 10:48 Patient ABO/Rh O POSITIVE 08/01/18 17:50 Antibody Screen NEGATIVE 08/01/18 17:50 Crossmatch IS Only See Detail 08/01/18 17:50 Assessment & Plan Assessment: L Hip dislocation - S/p unsuccessful closed reduction on 07/31, then L MARITZA on 08/01, POD #1 - Management per primary service Acute Blood Loss anemia - Hgb decreased 9.4 -> 7.1 this AM - 2 units PRBCs ordered, post transfusion Hgb 8.4 - Continue to monitor - Currently on Xarelto for DVT PPx, consider holding if continues to have decrease in H/H Decreased Urine Output - I/O show 400 ml urine output overnight - In setting of anemia as above, s/p IVF in OR - BUN/Cr WNL, continue to monitor - Will hold home Mirabegron for urinary incontinence which may be contributing - Continue to monitor Cr, I/O, avoid nephrotoxic agents Parkinson's Disease - Continue home Sinemet, Amantidine Thank you for the consult. We will continue to follow along during patient's hospitalization. Please contact hospitalist service for any questions or concerns.
[2018-08-02] MEDS: TEMAZEPAM 15 MG CAP PO PRN (21:54)
[2018-08-03] MEDS: ACETAMINOPHEN 325 MG TAB PO SCH ×4 (03:58→21:02)
[2018-08-03] MEDS: oxyCODONE IR 5 MG TAB PO PRN ×4 (03:58→21:03)
[2018-08-03] MEDS: CARBIDOPA/LEVODOPA 25 MG/100 MG TAB PO SCH ×3 (07:59→21:02)
[2018-08-03] MEDS: MULTIVITAMINS 1 EACH TAB PO SCH (08:58)
[2018-08-03] MEDS: FAMOTIDINE 20 MG TAB PO SCH ×2 (08:59→21:03)
[2018-08-03] MEDS: SENNOSIDES/DOCUSATE SODIUM TAB PO SCH ×2 (08:59→21:03)
[2018-08-03] MEDS: VITAMIN B COMPLEX 1 EA CAP/TAB PO SCH (08:59)
[2018-08-03] MEDS: RIVAROXABAN 10 MG TAB PO SCH (08:59)
[2018-08-03] MEDS: buPROPion XL 150 MG TAB PO SCH (08:59)
[2018-08-03] MEDS: CHOLECALCIFEROL VIT D3 2,000 UNITS TAB/CAP PO SCH (08:59)
[2018-08-03] MEDS: GABAPENTIN 300 MG CAP PO SCH ×3 (10:40→21:50)
--- NOTE | 2018-08-03 13:54 | HOSPPROG ---
Hospitalist Progress Note Assessment/Plan: L Hip dislocation - S/p unsuccessful closed reduction on 07/31, then L MARITZA on 08/01, POD #1 - Management per primary service Acute Blood Loss anemia - Hgb decreased 9.4 -> 7.1 on 08/02, s/p 2 units PRBCs ordered, Hgb 9.1 this AM - Continue to monitor - Currently on Xarelto for DVT PPx, consider holding if continues to have decrease in H/H Decreased Urine Output - I/O show 400 ml urine output overnight on 08/02 - In setting of anemia as above, s/p IVF in OR - BUN/Cr WNL, continue to monitor - Holding home Mirabegron for urinary incontinence which may be contributing - UO 3.75 L in past 24 hours - Continue to monitor Cr, I/O, avoid nephrotoxic agents Parkinson's Disease - Continue home Sinemet, Amantidine Subjective: Patient reports pain in L hip this AM Objective: Vital Signs Temp Pulse Resp BP Pulse Ox 36.3 C 71 14 96/62 L 98 08/03/18 11:24 08/03/18 11:24 08/03/18 11:24 08/03/18 11:24 08/03/18 11:24 Microbiology 08/01/18 17:13 Gram Stain - Final Hip - Eswab Laboratory Results 08/03/18 05:12 08/02/18 08/03/18 08/04/18 05:59 05:59 05:59 Intake Total 4080 1200 850 Output Total 1600 3750 Balance 2480 -2550 850 - Physical Exam Constitutional: chronically ill appearing, uncomfortable Eyes: PERRL Ears, Nose, Mouth, Throat: moist mucous membranes Cardiovascular: regular rate and rhythym Respiratory: no respiratory distress Gastrointestinal: soft, non-tender abdomen Genitourinary: gates in urethra Skin: normal color Musculoskeletal: pain with ROM Neurologic: AAOx3 Psychiatric: interacting appropriately ICD10 Worksheet Patient Problems: Problems Problem Status Onset Hip dislocation, left Acute UTI (urinary tract infection) Acute
--- NOTE | 2018-08-03 14:04 | SOAPPROG ---
SOAP Progress Note Assessment/Plan: Assessment: Plan: Subjective: states she was out of bed for 10 minutes this morning dressing C&D with foot NVI brace in place cont PT she does not want to go to [facility] Objective: Vital Signs Temp Pulse Resp BP Pulse Ox 36.3 C 71 14 96/62 L 98 08/03/18 11:24 08/03/18 11:24 08/03/18 11:24 08/03/18 11:24 08/03/18 11:24 Microbiology 08/01/18 17:13 Gram Stain - Final Hip - Eswab Laboratory Results 08/03/18 05:12 08/02/18 08/03/18 08/04/18 05:59 05:59 05:59 Intake Total 4080 1200 850 Output Total 1600 3750 Balance 2480 -2550 850 ICD10 Worksheet Patient Problems: Problems Problem Status Onset Hip dislocation, left Acute UTI (urinary tract infection) Acute
[2018-08-03] MEDS: POLYETHYLENE GLYCOL 3350 17 GM PKT PO PRN (16:34)
[2018-08-03] MEDS: TEMAZEPAM 15 MG CAP PO PRN (21:03)
[2018-08-04] MEDS: ACETAMINOPHEN 325 MG TAB PO SCH ×4 (05:13→20:56)
[2018-08-04] MEDS: oxyCODONE IR 5 MG TAB PO PRN ×3 (06:21→20:37)
[2018-08-04] MEDS: CARBIDOPA/LEVODOPA 25 MG/100 MG TAB PO SCH ×3 (08:17→20:37)
[2018-08-04] MEDS: GABAPENTIN 300 MG CAP PO SCH ×3 (08:18→20:56)
[2018-08-04] MEDS: buPROPion XL 150 MG TAB PO SCH (08:18)
[2018-08-04] MEDS: VITAMIN B COMPLEX 1 EA CAP/TAB PO SCH (08:19)
[2018-08-04] MEDS: MULTIVITAMINS 1 EACH TAB PO SCH (08:19)
[2018-08-04] MEDS: FAMOTIDINE 20 MG TAB PO SCH ×2 (08:19→20:36)
[2018-08-04] MEDS: SENNOSIDES/DOCUSATE SODIUM TAB PO SCH ×2 (08:19→20:37)
[2018-08-04] MEDS: RIVAROXABAN 10 MG TAB PO SCH (08:19)
[2018-08-04] MEDS: CHOLECALCIFEROL VIT D3 2,000 UNITS TAB/CAP PO SCH (08:19)
--- NOTE | 2018-08-04 10:23 | HOSPPROG ---
Hospitalist Progress Note Assessment/Plan: L Hip dislocation - S/p unsuccessful closed reduction on 07/31, then L MARITZA on 08/01, POD #2 - Management per primary service Acute Blood Loss anemia - Hgb decreased 9.4 -> 7.1 on 08/02, s/p 2 units PRBCs ordered, Hgb 9.1 on 08/03, no s/s of bleeding - Continue to monitor - Currently on Xarelto for DVT PPx, consider holding if continues to have decrease in H/H Decreased Urine Output - I/O show 400 ml urine output overnight on 08/02 - In setting of anemia as above, s/p IVF in OR - BUN/Cr WNL, continue to monitor - Holding home Mirabegron for urinary incontinence which may be contributing - UO 1L over past 24 hours - Continue to monitor Cr, I/O, avoid nephrotoxic agents Parkinson's Disease - Continue home Sinemet, Amantidine Subjective: Pt reports improving pain, states she is willing to go to rehab center Objective: Vital Signs Temp Pulse Resp BP Pulse Ox 36.7 C 69 14 130/61 H 90 L 08/04/18 07:30 08/04/18 07:30 08/04/18 07:30 08/04/18 07:30 08/04/18 07:30 Microbiology 08/01/18 17:13 Gram Stain - Final Hip - Eswab Laboratory Results 08/03/18 05:12 08/03/18 08/04/18 08/05/18 05:59 05:59 05:59 Intake Total 1200 1350 Output Total 3750 950 400 Balance -2550 400 -400 - Physical Exam Constitutional: no apparent distress, uncomfortable Eyes: PERRL Ears, Nose, Mouth, Throat: moist mucous membranes Cardiovascular: regular rate and rhythym Respiratory: no respiratory distress Gastrointestinal: soft, non-tender abdomen Skin: warm Musculoskeletal: pain with ROM Neurologic: AAOx3 Psychiatric: interacting appropriately ICD10 Worksheet Patient Problems: Problems Problem Status Onset Hip dislocation, left Acute UTI (urinary tract infection) Acute
--- NOTE | 2018-08-04 15:09 | SOAPPROG ---
SOAP Progress Note Assessment/Plan: Assessment: Plan: Subjective: states she's better than yesterday dressing C&D OOB to commode plan for rehab tomorrow Objective: Vital Signs Temp Pulse Resp BP Pulse Ox 37.0 C 71 16 123/56 H 92 08/04/18 15:04 08/04/18 15:04 08/04/18 15:04 08/04/18 15:04 08/04/18 15:04 Microbiology 08/01/18 17:13 Gram Stain - Final Hip - Eswab Laboratory Results 08/03/18 05:12 08/03/18 08/04/18 08/05/18 05:59 05:59 05:59 Intake Total 1200 1350 Output Total 3750 950 600 Balance -2550 400 -600 ICD10 Worksheet Patient Problems: Problems Problem Status Onset Hip dislocation, left Acute UTI (urinary tract infection) Acute
[2018-08-04] MEDS: TEMAZEPAM 15 MG CAP PO PRN (20:36)
[2018-08-05] MEDS: oxyCODONE IR 5 MG TAB PO PRN ×3 (01:50→11:34)
[2018-08-05] MEDS: ACETAMINOPHEN 325 MG TAB PO SCH ×2 (03:47→09:39)
[2018-08-05] MEDS: CARBIDOPA/LEVODOPA 25 MG/100 MG TAB PO SCH (07:29)
--- NOTE | 2018-08-05 07:30 | SOAPPROG ---
LAY Progress Note Assessment/Plan: Assessment: 77 year old female s/p left AMRITZA with ORIF of acetabulum - late April 2017 Left hip dislocation 1+ week ago, didn't present to ER until 5 days after injury - Dr. Dumont attempted closed reduction of left hip dislocation in OR on 07-31-18 - unsuccessful s/p left MARITZA revision to a locked cup - POD 4 Acute blood loss anemia - received 2 units PRBC last week Parkinson's Disease Plan: Continue d/c planning - patient will be going to SNF today Patient may WBAT with hip brace in place. Left hip flexion limited to 60 degrees. Continue PT/OT efforts Continue oral pain medication, muscle relaxer - tylenol, celebrex, oxycodone, flexeril; will be discharged on oxycodone and tylenol Continue VTE pxx- Xarelto until OID [address] Dumont's office later this week Subjective: Patient states she is feeling better this morning. She is wanting to get up and start "exercising." She will be going to SNF today. She denies SOB, CP, fever, chills. Objective: Vital Signs Temp Pulse Resp BP Pulse Ox 36.7 C 75 16 115/56 L 97 08/04/18 23:29 08/04/18 23:29 08/04/18 23:29 08/04/18 23:29 08/04/18 23:29 Microbiology 08/01/18 17:13 Gram Stain - Final Hip - Eswab Laboratory Results 08/03/18 05:12 08/04/18 08/05/18 08/06/18 05:59 05:59 05:59 Intake Total 1350 1350 200 Output Total 950 900 900 Balance 400 450 -700 Patient resting in bed, no acute distress. LLE: Hip brace is not closed, but it is in place. Surgical wound dressings are clean, dry and intact. Lower leg compartments are soft and nontender. Grossly NVI distally. ICD10 Worksheet Patient Problems: Problems Problem Status Onset Hip dislocation, left Acute UTI (urinary tract infection) Acute
--- NOTE | 2018-08-05 07:35 | PDDCSUM ---
Discharge Summary Discharge Summary: ADMISSION DIAGNOSIS: Left hip recurrent dislocations DISCHARGE DIAGNOSIS: Left hip recurrent dislocations OPERATION PERFORMED: August 01, 2018 Left total hip revision to a locked cup POSTOPERATIVE COMPLICATIONS: None CONDITION ON DISCHARGE: Improved HPI: The patient is a 77 year old female who presented to the ED 1+ weeks ago for left hip pain. She was walking with her walker when she felt a "wobbliness" and felt pain and strain into her left hip. Since that time she had difficulty bearing weight. She did have a hip brace that she had after a previous hip dislocation that she applied and has been using that for limited mobility. On July 31, 2018 a closed reduction in the OR was performed, but it was unsuccessful. Therefore left total hip revision to a locked cup was recommended. In November 2017 she fell and broke her left hip. She [place]miarth[place]. She had subsequent dislocations and then proceeded to have a left hip arthroplasty with pelvic fracture repair performed late April [address] Dumont. She was seen here early June for hip dislocation after a fall. She required the OR for closed reduction at that time. DESCRIPTION OF HOSPITAL COURSE: The patient was admitted to the hospital the evening before surgery and underwent a left total hip arthroplasty revision with locked cup. Postoperatively, patient was treated with multimodal DVT prophylaxis, including Xarelto, SCDs, foot pumps. She had a decrease in hemoglobin to 7.1 and received 2 units of PRBC. She was evaluated by hospital medicine. There was no evidence of bleeding. Patient was seen by PT. She wore a hip brace that locked flexion to no more than 60 degrees. Her most recent H&H is 9.1/26.9. Patient was able to void spontaneously. At the time of discharge, patient was afebrile, wound was clean and dry. Patient is walking with a walker. DISPOSITION: The patient is discharged to SNF. Patient may progress to full weightbearing on the left lower extremity as tolerated and will continue to wear the hip brace with flexion limited to no more than 60 degrees. She will continue Xarelto until 10 days post-op. Patient has prescriptions for Oxycodone and Xarelto for pain control and VTE prophylaxis The patient will be seen by Dr. Rand office at the end of this week. If there are any problems, patient is to call Dr. Rand office.
--- NOTE | 2018-08-05 07:49 | PDIAF ---
- Diagnosis Diagnosis: Left hip dislocation Code Status: Full Code - Medication Management Discharge Medications: electronically signed and located in the Home Medication List. - Orders Services needed: Physical Therapy (Keep brace in place at all times; limited to hip flexion 60 degrees. WBAT), Occupational Therapy (Keep brace in place at all times; limited to hip flexion 60 degrees. WBAT) Diet Recommendation: no restrictions on diet Diet Texture: Regular Texture Diet Additional Instructions: Weight bear as tolerated on left leg. Keep brace in place at all times. Hip flexion limited to 60 degrees by brace. Continue Xarelto until 10 days post-op. Follow up with Dr. Dumont's office later this week. - Follow Up Care Current Providers and Referrals: Lyn Panchal [Primary Care Provider] - As per Instructions Colleen Dumont MD [Medical Doctor] - follow up as scheduled (Have patient make follow up appt later this week with Dr. Dumont)
[2018-08-05 08:00] VITALS: BP 142/59
--- NOTE | 2018-08-05 09:00 | ASMTLACE ---
ATIYA Length of stay for Answers: 4-6 days current admission Acuity / Level of Answers: Yes Care: Did the patient have an inpatient admission? Comorbidities - select Answers: Opioid dependence all that apply / Chronic pain Other Notes: Parkinson's disease # of Emergency department Answers: 1-2 visits in the last 6 months Social determinants Answers: Mental health diagnosis (anxiety, depression, pers onality disorders, etc.) Score: 16 Date Signed: 08/05/2018 08:59 AM Electronically Signed By:Apryl Sutherland RN
[2018-08-05] MEDS: SENNOSIDES/DOCUSATE SODIUM TAB PO SCH (09:32)
[2018-08-05] MEDS: CHOLECALCIFEROL VIT D3 2,000 UNITS TAB/CAP PO SCH (09:38)
[2018-08-05] MEDS: VITAMIN B COMPLEX 1 EA CAP/TAB PO SCH (09:39)
[2018-08-05] MEDS: MULTIVITAMINS 1 EACH TAB PO SCH (09:39)
[2018-08-05] MEDS: buPROPion XL 150 MG TAB PO SCH (09:39)
[2018-08-05] MEDS: RIVAROXABAN 10 MG TAB PO SCH (09:40)
[2018-08-05] MEDS: FAMOTIDINE 20 MG TAB PO SCH (09:40)
[2018-08-05] MEDS: GABAPENTIN 300 MG CAP PO SCH (09:40)
== END 2018-08-05 11:47 | DRG 470 ==
LOC: CED 10:08 → FSGY 13:01 → F3E 15:16 → F3N 17:29
PROVIDERS: ADMIT Orthopaedic Surgery; ATTEND Orthopaedic Surgery
PROC: 0SSBXZZ Reposition Left Hip Joint, External Approach (ICD-10-PCS; 2018-07-31)
PROC: 0SRE0JA Replacement of Left Hip Joint, Acetabular Surface with Synthetic Substitute, Uncemented, Open Approach (ICD-10-PCS; principal; 2018-08-01 15:45)
PROC: 30233N1 Transfusion of Nonautologous Red Blood Cells into Peripheral Vein, Percutaneous Approach (ICD-10-PCS; 2018-08-02)
DX: T84.021A Dislocation of internal left hip prosthesis, initial encounter (principal); D62 Acute posthemorrhagic anemia; W19.XXXA Unspecified fall, initial encounter; E86.9 Volume depletion, unspecified; G20 Parkinson's disease; M79.7 Fibromyalgia; N32.81 Overactive bladder
CPT/HCPCS: 73502-PO; 80048-ER; 85025-QW-ER; 96374; 97116-GP; 97162-GP; 97167-GO; 97530-GO; 97530-GP; 97535-GO; J0171; J0690; J1100; J1170; J1885; J2270; J2405; J2704; J2795; J3010; P9016; P9021